=== PATIENT | male | born 1950 | race Caucasian/White ===

== ENCOUNTER 2022-12-20 07:12 | Day surgery (SDC) | payer MEDICARE, SELFPAY ==
[2022-12-20] MEDS: LACTATED RINGERS 1000 ML 1,000 ML 100 ML IV (07:25)
[2022-12-20 07:36] VITALS: BMI 33.8
[2022-12-20 07:41] VITALS: BP 134/89; PULSE 52; RESP 16; TEMP 36.7; O2SAT 94
--- NOTE | 2022-12-20 08:30 | CRLHL7_ITS ---
For Patients: As a result of the Century Cures Act, medical imaging exams and procedure reports are released immediately into your electronic medical record. You may view this report before your referring provider. If you have questions, please contact your health care provider. INDICATION: Intraoperative evaluation. TECHNIQUE: Two portable spot intraoperative images of the left foot. FINDINGS: 14.2 seconds fluoroscopy time utilized intraoperatively. IMPRESSION: 14.2 seconds fluoroscopy time utilized at the time of left foot surgery. Dictated by Raj Neal MD @ 12/20/2022 10:21:53 AM (Electronically Signed)
[2022-12-20] MEDS: BUPIVACAINE 0.5% 30 ML 40 ML INJECTION (09:18)
[2022-12-20 10:29] VITALS: BP 116/79; PULSE 47; RESP 16; TEMP 36.7; O2SAT 95
--- NOTE | 2022-12-20 10:33 | W.ANESCHARGE ---
Anesthesia Charges Start Date/Time Anesthesia Start Date: 12/20/22 Anesthesia Start Time: 08:58 Stop Date/Time Anesthesia Stop Date: 12/20/22 Anesthesia Stop Time: 10:32
[2022-12-20 10:45] VITALS: BP 123/78; PULSE 44; RESP 16; O2SAT 97
--- NOTE | 2022-12-20 10:48 | P.PCN_ITS ---
Procedure Note Date Seen: 12/20/22 Date of procedure: 12/20/22 Will [facility] bill your pro fee for this procedure?: No Pre-op diagnosis: Hallux rigidus left Post-op diagnosis: same Procedure: Cheilectomy 1st MPJ left Procedure Description: Indication for surgery: Patient was seen in clinic for arthritic great toe joint. He has elected for cheilectomy today. I reviewed the procedure, recovery, expectations and potential complications. These include but are not limited to: Poor wound healing, infection, continued pain, potential need for future surgery, deep venous thrombosis, pulmonary embolism and possible . All questions answered and written consent was obtained and site marked. Procedure: Patient was brought in the operating room placed in supine position on operating table. IV sedation was initiated local anesthetic injected into the left foot. She was then prepped and draped in a sterile fashion. Standard time-out protocol followed. Left foot was then exsanguinated and the ankle tourniquet inflated to 250 mm Hg. A dorsal linear incisions made over the 1st metatarsophalangeal joint. The incision was carried down through skin subcutane ous tissues. Linear capsular incision was made and joint capsule reflected away from the 1st MPJ. Two large loose floating bone fragments dorsally are encountered and removed. Third loose fragments attached to the phalangeal base and is removed. Significant bony spurring to the dorsal medial and lateral aspect of the 1st metatarsal head. There is complete loss of cartilage over the 1st metatarsal head. Despite this the MPJ glides nicely without catching. Using a combination of a rongeur and rotary bur the bony spurring from both the phalangeal base and the 1st metatarsal head were removed. C-arm confirmed excellent reduction of the bony growth. Clinical range of motion is without catching and glides nicely without bony impingement dorsally. Wound was thoroughly irrigated with normal sterile saline. Redundant joint capsule excised and joint capsule repaired with 3-0 Vicryl. Subcutaneous tissues reapproximated 4-0 Vicryl and the skin closed with 4-0 Prolene. Sterile dressing was applied she was transferred from OR to PACU vital signs stable and vascular status intact to the left foot. He was discharged per Anesthesia. He is given [place] for pain. A follow-up in 2-3 days. Both written and verbal postop instructions given. Anesthesia: MAC and local Surgeon: Edy Gaston DPM Estimated blood loss (mL): 5 Condition: stable Disposition: same day
[2022-12-20 11:00] VITALS: BP 139/65; PULSE 50; RESP 16; O2SAT 96
== END 2022-12-20 11:08 | disposition home or self-care (01) ==
LOC: OR 07:14
PROVIDERS: PCP Family Medicine; Visit Provider Podiatrist
PROC: (CPT 28289; principal; 2022-12-20 08:30)
DX: M20.22 Hallux rigidus, left foot (principal)
CPT/HCPCS: 28289; 1480; 73620; J0665; J2250; J2704; J3010; J7120

== ENCOUNTER 2024-07-26 02:36 | Emergency (ER) | payer MEDICARE, SELFPAY ==
[2024-07-26] VITALS (14 sets, daily range): BP systolic 111–147; BP diastolic 75–102; PULSE 76–83; RESP 14–44; TEMP 36.2; O2SAT 88–94; BMI 34.7
--- OUTSIDE RECORDS SUMMARY | 2024-07-26 02:39 | XMS_ITS | Clinical Summary ---
Author Organization [facility] Address [address] [place] [id number] Care Team Providers Care Toddler Lead Teacher Name Role Phone Ailyn, Marguerite TANISHA Unavailable [phone] Cecil Ge MD Primary Care Provider Allergies Active Allergy Reactions Criticality Noted Date Comments Atorvastatin Myalgia High 10/26/2019 Pravastatin Myalgia High 10/26/2019 Rosuvastatin Myalgia High 10/26/2019 Medications albuterol sulfate (ALBUTEROL INHL) Inhale 1-2 Puffs by mouth every 4 hours if needed. Active albuterol-ipratro pium (DUONEB) (2.5-0.5 mg) in 3 mL NEBULIZATION solutionIndicatio ns:Community acquired pneumonia, unspecified laterality Inhale 3 mL via a nebulizer every 6 hours if needed for Shortness Of Breath or Wheezing. 540 mL 3 024 Active NebulizerIndicati ons:Community acquired pneumonia, unspecified laterality Nebulizer, disposable neb kit x 4, reuseable neb kit x 1, mask x 1, filters x 1. Frequency of use: daily; Medication: duoneb Length of need: 99 months 1 Each 024 Active nebulizer accessories kitIndications:Co mmunity acquired pneumonia, unspecified laterality For home use. Length of need: 99 1 Kit 024 Active evolocumab (Repatha SureClick) 140 mg/mL subcutaneous pen injectorIndicatio ns:Hyperlipidemia , unspecified hyperlipidemia type Inject 1 mL (140 mg) subcutaneous every 2 weeks. Inject into abdomen, thigh, or upper arm; rotate injection sites. 6 mL 2 025 Active fluticasone (50 mcg per actuation) nasal solution (FLONASE) Inhale 1 [place] into affected nostril(s) once daily if needed for Rhinitis. Active polyethylene glycol (MIRALAX; GLYCOLAX) 17 g per packet packetIndications :S/P lumbar fusion Take 17 g by mouth or nasogastric tube once daily if needed for Constipation. 025 Active sennosides-docusa te (SENOKOT S) (8.6-50 mg) tabletIndications :S/P lumbar fusion Take 1-4 Tablets by mouth 2 times daily if needed for Constipation. 50 Tablet 06/29/19 25 12:30 PM TIMBER CUTTER 025 Active acetaminophen (TYLENOL EXTRA STRGTH) 500 mg tabletIndications :S/P lumbar fusion Take 2 Tablets (1,000 mg) by mouth every 6 hours. Max acetaminophen dose: 4000mg in 24 hrs. 100 Tablet 06/29/19 25 12:30 PM TIMBER CUTTER 025 Active cyclobenzaprine (FLEXERIL) 5 mg tabletIndications :S/P lumbar fusion Take 1 Tablet (5 mg) by mouth every 8 hours if needed for Muscle Spasm. 20 Tablet 06/29/19 25 12:30 PM TIMBER CUTTER 025 Active methylPREDNISolon e (MEDROL DOSEPAK) 4 mg tabletIndications :Post-op pain Take by mouth as instructed per packaging. 21 Tablet 07/04/19 25 10:27 AM TIMBER CUTTER 025 Active gabapentin (NEURONTIN) 300 mg capsuleIndication s:Post-op pain Take 1 Capsule (300 mg) by mouth three times daily. 90 Capsule 07/04/19 25 10:27 AM TIMBER CUTTER 025 Active HYDROmorphone 2 mg tabletIndications :Post-op pain Take 1-2 Tablets (2-4 mg) by mouth every 6 hours if needed for Pain. 30 Tablet 07/04/19 25 10:27 AM TIMBER CUTTER 025 Active fluticasone (50 mcg per actuation) nasal solution (FLONASE)Indicati ons:Seasonal allergies Inhale 1 [place] into both nostrils once daily. 2 Bottle 1 015 2024 Discontinued(R eorder (E-cancel not sent)) naproxen sodium (Aleve) 220 mg cap Take 220 mg by mouth 2 times daily if needed. 2024 Discontinued(* IP Discontinued) oxyCODONE (ROXICODONE) 5 mg immediate release tabletIndications :S/P lumbar fusion Take 1-2 Tablets (5-10 mg) by mouth every 4 hours if needed for Pain (First choice for severe pain.). 30 Tablet 06/29/19 12:30 PM TIMBER CUTTER 025 2024 Discontinued(* IP Discontinued) WalkerIndications :S/P lumbar fusion Walker with front wheels for home use. Anticipated use for 4 weeks 1 Each 025 2024 Discontinued(* Patient states no longer taking) HYDROmorphone 2 mg tabletIndications :Post-op pain Take 1-2 Tablets (2-4 mg) by mouth every 6 hours if needed for Pain. 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 Araujo left knee cortisone injection. Aortic dilatation 06/07/2019 Overview (09/27/2019): May 2019: calcium score 29%, but aorta dilated to 4.6 Recommended Echocardiogram. August 2019, Chest angiogram: 1. Moderate dilation of the aortic root measuring 46 mm in maximal diameter across the noncoronary cusp. 2. Moderate dilation of the mid ascending aorta measuring 48 mm in maximal diameter. 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 Hip osteoarthritis 09/21/2013 Vitamin D deficiency 04/17/2012 Overview (01/14/2015): April 2012: vitamin D level 30 while taking 5,000 units daily, continue. Dec 2014: vitamin D. 25.9. Adenomatous colon polyp 12/24/2011 Overview (02/28/2023): Colonoscopy 03/2022 TA, repeat in 7 years Degenerative arthritis of finger(s) 12/10/2009 Overview (12/10/2009): Nov 2009: left pinky: PIP joint arthritis, possible old fracture. Mixed hyperlipidemia 10/10/2008 Overview (08/22/2018): Dec 2014: fasting Cholesterol high, ASCVD Risk Virtualization Engineer: 10 % 10 Year risk after info entered, statin recommended, Patient was going to think about it. May 2016: started Atorvastatin (Lipitor) 20mg. June 2016: leg soreness, so trying off and may try again. July 2018: ASCVD Risk Virtualization Engineer: 15 % 10 Year risk after info entered, trying 10mg Rosuvastatin (Crestor). Abnormal glucose 10/10/2008 BURSITIS - OLECRANON 09/16/2004 BAKERS CYST (POPLITEAL) 05/25/2004 SLEEP DISORDER 11/22/2002 ALLERGIES 09/12/2001 Resolved Problems Problem Noted Date Diagnosed Date Resolved Date Elevated fasting glucose 11/19/200905/2016 Overview (12/10/2009): October 2009: fasting glucose 108. nees recheck. High recheck; referral to Pre-diabetes class Nov 2009. Family history of colonic polyps 01/20/2009 06/30/2016 Overview (02/16/2017): Colonoscopy 12/2008 polyp repeat in 5 years Colonoscopy 01/2017 polyp repeat in 5 years Encounters Date Type Department Care Team Description 07/25/2024 Nurse Triage [facility] [id number] [place] [id number] Cecil Ge MD Dizzy 07/06/2024 1:20 PM TIMBER CUTTER Office Visit [address] [address] Cecil Ge MD Hospital F/U 07/06/2024 Patient Outreach [facility] Care Management - Advanced Care Team [address] [place] [phone] Sera Townsend, ARABIC TEACHER Complex Care Management (Complex Care Engagement) 07/06/2024 Travel 07/04/2024 Travel 07/04/2024 Patient Outreach [facility] Care Management - Care Management Navigation/[facility] [address] [place] [id number] Marry Akers Care Management Intake (Payer Referral) 07/04/2024 Patient Outreach [address] [address] Demetrice Sorensen, RN Primary RN Care Management (LACE:30); Hospital F/U (Post op pain DOD:07/03/24) 07/02/2024 Patient Outreach [address] [address] Caryl Baldwin, RN Primary RN Care Management; Hospital F/U (DOD 06/30/2024, Spinal stenosis of lumbar region, LACE+30) 07/01/2024 6:48 PM TIMBER CUTTER - 07/03/2024 12:00 PM TIMBER CUTTER Hospital Encounter [address] [address] s, U Hospitalist Kaykay Solis DO Islyamova, Lyudmila, MD Carlson, Bayard Chandler, MD Post-op pain (Primary Dx) Discharge Disposition: Home Self Care 07/01/2024 Travel 06/28/2024 7:29 AM TIMBER CUTTER Anesthesia Event [address] [address] Shelley Brand MD LabergeMarcelo MD 06/28/2024 7:10 AM TIMBER CUTTER - 06/28/2024 11:54 AM TIMBER CUTTER Surgery [address] [address] Sarah Griffin MD Posterior Spine Fusion with Instrumentation L3-L4, TLIF - Transforaminal Lumbar Interbody Fusion L3-L- Left, Laminectomy with facetectomy/foraminoto my L3-L4 06/28/2024 5:11 AM TIMBER CUTTER - 06/30/2024 2:49 PM TIMBER CUTTER Hospital Encounter [address] [address] Sarah Griffin MD S/P lumbar fusion (Primary Dx) Discharge Disposition: Home Self Care 06/27/2024 Travel 06/11/2024 Orders Only [address] [address] Cecil Ge MD 1 scan: (1-Ord) 06/08/2024 06/08/2024 11:55 AM TIMBER CUTTER Ancillary Procedure [address] [address] 06/08/2024 11:30 AM TIMBER CUTTER Office Visit [address] [address] Cecil Ge MD Pre-Op Exam (DOS:06/28/24, Dr. Griffin, [place]) 06/07/2024 Travel 06/06/2024 Travel from Last 3 Months Immunizations Immunization Administration Dates Next Due COVID-19 vaccine (Applied BioCode NTUTOPY 30mcg/0.3mL) PF, MDV 07/26/2020,07/05/2020 Influenza, High-dose Inactivated 05/14/2019 Influenza, High-dose Quadriv alent Inactivated 03/31/2022,03/11/2020 Influenza, IIV3 (Age >=3 years) 02/22/2012,02/05 Influenza, IIV4 01/21/2017,01/06/2016,01/10/2015 Pneumococcal Poly,23-Valent (Pneumovax) 02/07/20 20 Pneumococcal conj 13-Valent (Prevnar 13) 019 Td (Age >=7 Years) 06/10/1999 Tdap 09/10/2021,02/05/2011 Zoster (Shingrix-RZV, recombinant) 11/22/2023, Family History Medical History Relation Name Comments Stroke Father Diabetes Mother Diabetes Paternal Grandfather Cancer Sister Breast cancer. Relation Name Status Comments Father Mother Paternal Grandfather Sister Social History Tobacco Use Types Packs/Day Years Used Date Smoking Tobacco: Never Passive Smoke Exposure: Never Smokeless Tobacco: Never Tobacco Cessation:Counseling Given: No Alcohol Use Standard Drinks/Week Comments Yes 1 (1 standard drink = 0.6 oz pur e alcohol) 1-2 per week. PHQ-2 Answer Date Recorded PHQ-2 TOTAL SCORE 0 07/06/2024 Social Connections Answer Date Recorded Do you often feel lonely or isolated from those around you? 0 07/01/2024 Financial Resource Strain Answer Date R ecorded Difficulty of Paying Living Expenses 3 02/28/2024 Difficulty of Paying Living Expenses Not on file 02/28/2024 Food Insecurity Answer Date Recorded Do you worry your food will run out before you are able to buy more? 1 07/06/2024 Transportation Needs Answer Date Record ed Does lack of transportation keep you from medica l appointments? 1 07/06/2024 Does lack of transportation keep you from work, meetings or getting things that you need? 1 07/06/2024 Housing Stability Answer Date Recorded What is your housing situation today? 1 07/06/2024 Interpersonal Safety Answer Date Record ed Are you being hit, kicked, p ushed or yelled at (see row info)? No 06/29/2024 Interpersonal Safety Abuse 12 - 18 Not on file 06/29/2024 Interpersonal Safety Ambulatory Vulnerability No t on file 06/29/2024 Utilities Answer Date Recorded Do you have trouble paying f or utilities (for example, heat, electricity, water, phone)? 1 07/06/2024 Sex and Gender Information Value Date Recorded Sex Assigned at Male 02/08/2023 10:51 AM CDT Legal Sex Male 5:24 AM TIMBER CUTTER Gender Identity Male 02/08/2023 10:51 AM CDT Sexual Orientation Straight 02/08/2023 10 :51 AM CDT Obstetrics History Last Filed Vital Signs Vital Sign Reading Time Taken Comments Blood Pressure 120/80 07/06/2024 1:17 PM TIMBER CUTTER Pulse 61 07/06/2024 1:17 PM TIMBER CUTTER Temperature 36.4 C (97.6 F) 07/03/2024 8:33 AM TIMBER CUTTER Respiratory Rate 18 07/03/2024 8:33 AM TIMBER CUTTER Oxygen Saturation 95% 07/06/2024 1:17 PM TIMBER CUTTER Inhaled Oxygen Concentration - - Weight 125.2 kg (276 lb) 07/06/2024 1:17 PM TIMBER CUTTER Height 188 cm (6' 2) 07/06/2024 1:17 PM TIMBER CUTTER Body Mass Index 35.44 07/06/2024 1:17 PM TIMBER CUTTER Plan of Treatment Upcoming Encounters Date Type Department Care Team (Late st Contact Info) Description 08/14/2024 8:30 AM CDT Orders Only [facility] [address] [place] [address] Health Maintenance Due Date Last Done Comments RSV vaccine for adults or (1 - Risk 60-74 years 1-dose series) 2012 COVID-19 vaccine series ( season) 2024 06/03/2022, 03/23/2021, 07/26/2020, Additional history exists Influenza Vaccine (#1) 2024 , 01/21/2017, 01/06/2016, Additional history exists Medicare Wellness for age 65+ 07/19/2024, 07/04/2020, 08/21/2018 BMI (ht and wt on same day) for age 18+ 07/06/2025 07/06/2024, 06/08/2024, 02/16/2024, Additional history exists Depression screening for age 12+ 07/06/2025 07/06/2024, 07/06/2024, 07/19/2023, Additional history exists Colonoscopy through age 75 03/09/202903/09, 03/09/2022, 03/09/2022, Additional history exists Lipids for age 45-75 06/08/2029 06/08/2024, 07/19/2023, 08/06/2022, Additional history exists Tetanus booster 09/11/2031 09/10/2021, 1010/2010, 06/10/1999 Hepatitis C screening for ag e 18-79 Completed 04/09/2016 Pneumococcal series for age 50+ Completed , 08/21/2018 Tdap Completed 09/10/2021, 02/05/2011 Zoster (shingles) series for age 50+ Completed 11/22/2023, 07/07/2023 Medical Devices Implanted Type Area Toddler Lead Teacher Device Identifier Shelf Expiration Date Model / Serial / Lot Bone 1-4mm 30cc Medtronic Chips Canclls Freeze Dried - [id number] Implanted:Qty : 1 on 06/28/2024 by Sarah Griffin MD at [facility] Left: Spine Medtronic Spine/Ortho [id number] 01/25/2028 [id number] / [id number] / Set Bone Graft Accelerate [place] Dbf 6c - [id number] Implanted:Qty : 1 on 06/28/2024 by Sarah Griffin MD at [facility] Left: Spine Medtronic Spine/Ortho [id number] 10/19/2025 [id number] / [id number] / Putty Easypack 5cc Magnetos - [id number] Implanted:Qty : 1 on 06/28/2024 by Sarah Griffin MD at [facility] l: Spine [employer] 03/02/2029 [id number] / / [id number] Spacer Catalyft 7mm Pl Lng - [id number] Implanted:Qty : 1 on 06/28/2024 by Sarah Griffin MD at [facility] Left: Spine Medtronic Spine/Ortho 04/09/2032 [id number] / / [id number] Putty Easypack 1.5cc Magnetos - [id number] Implanted:Qty : 1 on 06/28/2024 by Sarah Griffin MD at [facility] Left: Spine [employer] 11/30/2028 [id number] / / [id number] Set Screw Lmbr Ant 5.5mm Solera Break Off - [id number] Implanted:Qty : 4 on 06/28/2024 by Sarah Griffin MD at [facility] l: Spine Medtronic Spine/Ortho [id number] / / Screw Lmbr Post 7.5x55mm Solera 5.5/6 Va Cocr - [id number] Implanted:Qty : 2 on 06/28/2024 by Sarah Griffin MD at [facility] l: Spine Medtronic Spine/Ortho [id number] / / Screw Lmbr Post 6.5x55mm Solera 5.5/6 Va Cocr - [id number] Implanted:Qty : 2 on 06/28/2024 by Sarah Griffin MD at [facility] l: Spine Medtronic Spine/Ortho [id number] / / Jerome Lmbr 45x5.5mm Solera 5.5/6 Cvd Titnm - [id number] Implanted:Qty : 1 on 06/28/2024 by Sarah Griffin MD at [facility] l: Spine Medtronic Spine/Ortho [id number] / / Procedures Procedure Name Priority Date/Time Associated Diagnosis Comments CT SPINE LUMBAR WO LUCIANO 07/02/2024 12:18 PM TIMBER CUTTER HEMOGLOBIN Early AM 06/30/2024 6:19 AM TIMBER CUTTER XR SPINE LUMBAR 2 VIEWS Routine 06/29/2024 10:09 AM TIMBER CUTTER HEMOGLOBIN Early AM 06/29/2024 6:33 AM TIMBER CUTTER XR C-ARM GREATER 1 HR Routine 06/28/2024 10:43 AM TIMBER CUTTER XR O-ARM FLUORO 31-120 MINUTES Routine 06/28/2024 9:03 AM TIMBER CUTTER ENDOTRACHEAL TUBE Routine 06/28/2024 8:25 AM TIMBER CUTTER ENDOTRACHEAL TUBE Routine 06/28/2024 8:25 AM TIMBER CUTTER ENDOTRACHEAL TUBE Routine 06/28/2024 8:25 AM TIMBER CUTTER XR SPINE 1 VIEW PORTABLE Routine 06/28/2024 8:17 AM TIMBER CUTTER XR SPINE 1 VIEW PORTABLE Routine 06/28/2024 8:17 AM TIMBER CUTTER POSTERIOR LUMBAR SPINE FUSION LEVEL 1 WITH STEALTH Tier 4 06/28/2024 7:09 AM TIMBER CUTTER 1) Spondylolisthesis, Lumbar M43.16 2) Stenosis, Lumbar - w/Neurogenic Claudication M48.062 Case Notes 0730 180 MIN O Arm AND Stealth - TRANSONE (ABBY) CONFIRMED FOR 0730 TT 04/12Cell Saver CONFIRMED WITH SUE @30 # [id number] TT 04/12Axis Table Insert Russell CatheterSolera 5.5/6.0 - Confirmed with Perez Hdez ([phone]) BD 06/26Solera [id number] Accellerate Special Needs 6' 1.5, 125.7 kg, BMI 36.06 TYPE & SCREEN Preop 06/28/2024 6:25 AM TIMBER CUTTER GLUCOSE, FASTING Preop 06/28/2024 6:25 AM TIMBER CUTTER HEMOGLOBIN Preop 06/28/2024 6:25 AM TIMBER CUTTER SCAN-CARDIAC STRIP 06/28/2024 12:00 AM TIMBER CUTTER SCAN-OPERATIVE/PRO CEDURE REPORT 06/28/2024 12:00 AM TIMBER CUTTER CBC WITH AUTO DIFFERENTIAL Routine 06/08/2024 12:20 PM TIMBER CUTTER Pre-op exam BASIC METABOLIC PANEL Routine 06/08/2024 12:20 PM TIMBER CUTTER Pre-op exam PSA TOTAL Routine 06/08/2024 12:20 PM TIMBER CUTTER Special screening for malignant neoplasm of prostate VITAMIN D 25 (DEFICIENCY) Routine 06/08/2024 12:20 PM TIMBER CUTTER Vitamin D deficiency LIPID PANEL Routine 06/08/2024 12:20 PM TIMBER CUTTER Mixed hyperlipidemia PROTIME-INR Routine 06/08/2024 12:18 PM TIMBER CUTTER Pre-op exam XR CHEST 2 VIEWS PA AND LATERAL Routine 06/08/2024 12:00 PM TIMBER CUTTER Pre-op exam EKG 12 LEAD Routine 06/08/2024 12:00 AM TIMBER CUTTER Pre-op exam COLONOSCOPY SCREENING Routine 03/09/2022 10:22 AM TIMBER CUTTER History of colon polyps ANTI HCV Routine 04/09/2016 9:15 AM TIMBER CUTTER Need for hepatitis C screening test from Last 3 Months or Most Recently Relevant to Health Maintenance Results * CT SPINE LUMBAR WO (07/02/2024 12:18 PM TIMBER CUTTER) Anatomical Region Laterality Modality LUMBAR SPINE, Spine, Spine Compu nava Tomography 07/02/2024 12:1 8 PM TIMBER CUTTER Impressions 07/02/2024 12:40 PM TIMBER CUTTER 1. No instrumentation loosening or failure. 2. No high grade spinal canal or neural foraminal stenosis. Narrative 07/02/2024 12:40 PM TIMBER CUTTER For Patients: As a result of the Cures Act, medical imaging exams and procedure reports are released immediately into your electronic medical record. You may view this report before your referring provider. If you have questions, please contact your health care provider. EXAM: CT SPINE LUMBAR WO LOCATION: [facility] DATE: 07/02/2024 INDICATION: Lumbar radiculopathy, prior surgery, new symptoms COMPARISON: 07/01/24, 06/29/24 TECHNIQUE: Routine CT Lumbar Spine without IV contrast. Multiplanar reformats. Dose reduction techniques were used. FINDINGS: VERTEBRA: Normal vertebral body heights. Grade 1 retrolisthesis at L2-3 and L5- S1. Straightening of normal lumbar lordosis. Instrumented anterior and posterior spinal fusion and left-sided facetectomy and laminectomy at L3-4. No instrumentation loosening or failure. No robust bony fusion. CANAL/FORAMINA: Mild to moderate spinal canal stenosis at L3-4 and mild spinal canal stenosis at L2-3. No high-grade neural foraminal stenosis. Multilevel Schmorl's node-like endplate indentations. EXTRASPINAL: No extraspinal abnormality. Procedure Note Ned Baird MD - 07/02/2024 For Patients: As a result of the Cures Act, medical imagingexams and procedure reports are released immediately into your electronicmedical record. You may view this report before your referring provider.If you have questions, please contact your health care provider. EXAM: CT SPINE LUMBAR WO LOCATION: [facility] MEDICAL [facility]AG[facility] DATE: 07/02/2024 INDICATION: Lumbar radiculopathy, prior surgery, new symptoms COMPARISON: 07/01/24, 06/29/24 TECHNIQUE: Routine CT Lumbar Spine without IV contrast. Multiplanarreformats. Dose reduction techniques were used. FINDINGS: VERTEBRA: Normal vertebral body heights. Grade 1 retrolisthesis at L2-3and L5- S1. Straightening of normal lumbar lordosis. Instrumented anteriorand posterior spinal fusion and left-sided facetectomy and laminectomy atL3-4. No instrumentation loosening or failure. No robust bony fusion. CANAL/FORAMINA: Mild to moderate spinal canal stenosis at L3-4 and mildspinal canal stenosis at L2-3. No high-grade neural foraminal stenosis.Multilevel Schmorl's node-like endplate indentations. EXTRASPINAL: No extraspinal abnormality. IMPRESSION: 1. No instrumentation loosening or failure. 2. No high grade spinal canal or neural foraminal stenosis. Iman PATE CT Fin al Result * Hemoglobin - In AM (06/30/2024 6:19 AM TIMBER CUTTER) Only the most recent of3 resultswithin the time period is included. HEMOGLOBIN 14.6 13.5 - 17.5 g/dL 06/30/2024 6:51 AM [facility] MCV 92 80 - 100 fL 06/30/2024 6:51 AM [facility] Blood BLOOD SPECIMEN / Unknown Venipuncture / Unknown 06/30/2024 6:19 AM TIMBER CUTTER 06/30/2024 6:46 AM [facility] [place] - 06/30/2024 6:51 AM TIMBER CUTTER Call surgeon if Hemoglobin is less than 9. us [facility] Leeanna l Result [facility] SENDOUT [place] ZIP [id number] [address] [place] [address] * XR SPINE LUMBAR 2 VIEWS (06/29/2024 10:09 AM TIMBER CUTTER) Anatomical Region Laterality Modality LUMBAR SPINE Computed Radiogr aphy 06/29/2024 10:0 9 AM TIMBER CUTTER Impressions 06/29/2024 11:05 AM TIMBER CUTTER New postoperative changes with posterior jerome and screw fixation hardware and intervertebral disc spacer at L3-L4. Metal hardware appears intact on these images. Persistent mild grade 1 retrolisthesis of L2 on L3. No new loss of vertebral body height. Marked degenerative endplate changes and loss of disc height at L1-2, L2-3, and L5-S1. Narrative 06/29/2024 11:05 AM TIMBER CUTTER For Patients: As a result of the Cures Act, medical imaging exams and procedure reports are released immediately into your electronic medical record. You may view this report before your referring provider. If you have questions, please contact your health care provider. EXAM: XR SPINE LUMBAR 2 VIEWS LOCATION: [facility] DATE: 06/29/2024 INDICATION: Postop evaluation. COMPARISON: Lumbar spine CT 04/12/2024. Procedure Note Kiran Zelaya MD - 06/29/2024 For Patients: As a result of the Cures Act, medical imagingexams and procedure reports are released immediately into your electronicmedical record. You may view this report before your referring provider.If you have questions, please contact your health care provider. EXAM: XR SPINE LUMBAR 2 VIEWS LOCATION: [facility] DATE: 06/29/2024 INDICATION: Postop evaluation. COMPARISON: Lumbar spine CT 04/12/2024. IMPRESSION: New postoperative changes with posterior jerome and screw fixation hardwareand intervertebral disc spacer at L3-L4. Metal hardware appears intact onthese images. Persistent mild grade 1 retrolisthesis of L2 on L3. No newloss of vertebral body height. Marked degenerative endplate changes andloss of disc height at L1-2, L2- 3, and L5-S1. [facility] Leeanna l Result * XR C-ARM GREATER 1 HR (06/28/2024 10:43 AM TIMBER CUTTER) Anatomical Region Laterality Modality Computed Radiogr aphy 06/28/2024 10:4 3 AM TIMBER CUTTER Narrative 06/28/2024 11:22 AM TIMBER CUTTER For Patients: As a result of the Cures Act, medical imaging exams and procedure reports are released immediately into your electronic medical record. You may view this report before your referring provider. If you have questions, please contact your health care provider. EXAM: XR C-ARM GREATER 1 HR LOCATION: [facility] DATE: 06/28/2024 INDICATION: free text)->Intraoperative COMPARISON: None. TECHNIQUE: Intraoperative fluoroscopy performed during the patient's procedure. RADIATION DOSE: GILBERTO 7.83 mGy FINDINGS: 3 intraoperative fluoroscopic views of the lumbar spine for intraprocedural localization. Procedure Note Kenny Alva MD - 06/28/2024 For Patients: As a result of the Cures Act, medical imagingexams and procedure reports are released immediately into your electronicmedical record. You may view this report before your referring provider.If you have questions, please contact your health care provider. EXAM: XR C-ARM GREATER 1 HR LOCATION: [facility] DATE: 06/28/2024 INDICATION: free text)->Intraoperative COMPARISON: None. TECHNIQUE: Intraoperative fluoroscopy performed during the patient'sprocedure. RADIATION DOSE: GILBERTO 7.83 mGy FINDINGS: 3 intraoperative fluoroscopic views of the lumbar spine forintraprocedural localization. Sarah Griffin MD FLUOROSCOPY Final Result * XR O-ARM FLUORO 31-120 MINUTES (06/28/2024 9:03 AM TIMBER CUTTER) Anatomical Region Laterality Modality Computed Radiogr aphy 06/28/2024 9:03 AM TIMBER CUTTER Impressions 06/28/2024 10:22 AM TIMBER CUTTER Single crosstable view prone portal lumbar spine demonstrates 5 lumbar segments presumed with degenerative changes. Demarcation dorsally of the spinous process at L3. Additional frontal and lateral projection imaging of the lower lumbar spine with 192 image data set axially acquired of the lumbar spine also submitted. Correlate with real-time imaging/procedural changes. Narrative 06/28/2024 10:22 AM TIMBER CUTTER For Patients: As a result of the Cures Act, medical imaging exams and procedure reports are released immediately into your electronic medical record. You may view this report before your referring provider. If you have questions, please contact your health care provider. EXAM: XR SPINE 1 VIEW PORTABLE, XR O-ARM FLUORO 31-120 MINUTES LOCATION: [facility] MEDICAL IMAGING DATE: 06/28/2024 INDICATION: Localization back pain. COMPARISON: 06/28/2024 at 0751 hours. Procedure Note Jordan Calderón MD - 06/28/2024 For Patients: As a result of the Cures Act, medical imagingexams and procedure reports are released immediately into your electronicmedical record. You may view this report before your referring provider.If you have questions, please contact your health care provider. EXAM: XR SPINE 1 VIEW PORTABLE, XR O-ARM FLUORO 31-120 MINUTES LOCATION: [facility] MEDICAL IMAGING DATE: 06/28/2024 INDICATION: Localization back pain. COMPARISON: 06/28/2024 at 0751 hours. IMPRESSION: Single crosstable view prone portal lumbar spine demonstrates 5 lumbarsegments presumed with degenerative changes. Demarcation dorsally of thespinous process at L3. Additional frontal and lateral projection imaging of the lower lumbarspine with 192 image data set axially acquired of the lumbar spine alsosubmitted. Correlate with real-time imaging/procedural changes. us Sarah Griffin MD FLUOROSCOPY Final Result * HCHG TUBE PR1, HCHG STYLET PR1, HCHG MOUTHPIECE PR1 (06/28/2024 8:25 AM TIMBER CUTTER) Narrative Joanne Grant CRNA - 06/28/2024 8:25 AM TIMBER CUTTER Joanne Grant CRNA 06/28/2024 8:25 AM Procedure: ETT Patient location during procedure: OR ETT Properties Mask Ventilation: easy and oral airway Final Technique: direct laryngoscopy Type: straight Location: oral Cuffed: yes Tube Size: 8.0 mm Stylet: yes Laryngoscope Blade: Mancia Blade Size: 2 Cormack-Lehane Grade View: 2 Insertion Attempts: 1 Placement Verification: auscultation, end tidal CO2 and symmetrical chest wall movement Assessment: pharynx clear, atraumatic and dentition unchanged Secured at: 21 Measured From: lips Tooth guard used and removed: yes Bite Block: molar Difficulty: 0 (not difficult) us Shelley Brand MD ANESTHESIA PX NOTE ORDERA BLES Final Result * XR SPINE 1 VIEW PORTABLE (06/28/2024 8:17 AM TIMBER CUTTER) Only the most recent of2 resultswithin the time period is included. Anatomical Region Laterality Modality Spine, CERVICAL SPINE, THORACIC SPINE, LUMBAR SP INE Computed Radiography 06/28/2024 8:17 AM TIMBER CUTTER Impressions 06/28/2024 10:22 AM TIMBER CUTTER Single crosstable view prone portal lumbar spine demonstrates 5 lumbar segments presumed with degenerative changes. Demarcation dorsally of the spinous process at L3. Additional frontal and lateral projection imaging of the lower lumbar spine with 192 image data set axially acquired of the lumbar spine also submitted. Correlate with real-time imaging/procedural changes. Narrative 06/28/2024 10:22 AM TIMBER CUTTER For Patients: As a result of the Cures Act, medical imaging exams and procedure reports are released immediately into your electronic medical record. You may view this report before your referring provider. If you have questions, please contact your health care provider. EXAM: XR SPINE 1 VIEW PORTABLE, XR O-ARM FLUORO 31-120 MINUTES LOCATION: [facility] MEDICAL IMAGING DATE: 06/28/2024 INDICATION: Localization back pain. COMPARISON: 06/28/2024 at 0751 hours. Procedure Note Jordan Calderón MD - 06/28/2024 For Patients: As a result of the Cures Act, medical imagingexams and procedure reports are released immediately into your electronicmedical record. You may view this report before your referring provider.If you have questions, please contact your health care provider. EXAM: XR SPINE 1 VIEW PORTABLE, XR O-ARM FLUORO 31-120 MINUTES LOCATION: [facility] MEDICAL IMAGING DATE: 06/28/2024 INDICATION: Localization back pain. COMPARISON: 06/28/2024 at 0751 hours. IMPRESSION: Single crosstable view prone portal lumbar spine demonstrates 5 lumbarsegments presumed with degenerative changes. Demarcation dorsally of thespinous process at L3. Additional frontal and lateral projection imaging of the lower lumbarspine with 192 image data set axially acquired of the lumbar spine alsosubmitted. Correlate with real-time imaging/procedural changes. Sarah Griffin MD GENERAL IMAGING Final Result * Type and Screen (06/28/2024 6:25 AM TIMBER CUTTER) ABORH O Rh Positive 06/28/2024 7:33 AM [facility] BLOOD BANK ANTIBODY SCREEN Negative Negative 06/28/2024 7:33 AM [facility] BLOOD BANK SPECIMEN EXPIRATION DATE/TIME 07/01/24 23:59 06/28/2024 7:33 AM TIMBER CUTTER [facility] BLOOD BANK Blood BLOOD SPECIMEN / Unknown Non-Lab Venipuncture / Unknown 06/28/2024 6:25 AM TIMBER CUTTER 06/28/2024 6:35 AM TIMBER CUTTER Sarah Griffin MD BLOOD BANK Final Result [facility] BLOOD BANK [address] [place] [address] * (ABNORMAL) GLUCOSE, FASTING (06/28/2024 6:25 AM TIMBER CUTTER) GLUCOSE 109(H) 70 - 99 mg/dL 06/28/2024 7:14 AM TIMBER CUTTER [facility] Blood BLOOD SPECIMEN / Unknown Non-Lab Venipuncture / Unknown 06/28/2024 6:25 AM TIMBER CUTTER 06/28/2024 6:35 AM TIMBER CUTTER Sarah Griffin MD CHEMISTRY Final Result [facility] SENDOUT INTERNAL ZIP [address] [place] [id number] * SCAN-CARDIAC STRIP (06/28/2024 12:00 AM TIMBER CUTTER) Narrative 06/28/2024 12:00 AM TIMBER CUTTER Ordered by an unspecified provider. Other Clinical Staff OTHER Final Resul t * SCAN-OPERATIVE/PROCEDURE REPORT (06/28/2024 12:00 AM TIMBER CUTTER) Narrative 06/28/2024 12:00 AM TIMBER CUTTER Ordered by an unspecified provider. us Other Clinical Staff OTHER Final Resul t * (ABNORMAL) VITAMIN D 25 (DEFICIENCY) (06/08/2024 12:20 PM TIMBER CUTTER) Pathologist [facility] VITAMIN D,25-OH,TOTAL,IA 29(L) 30 - 100 ng/mL [facility] Comment: Vitamin D Status 25-OH Vitamin D: Deficiency: <20 ng/mL Insufficiency: 20 - 29 ng/mL Optimal: > or = 30 ng/mL For 25-OH Vitamin D testing on patients on D2-supplementation and patients for whom quantitation of D2 and D3 fractions is required, the QuestAssureD(TM) 25-OH VIT D, (D2,D3), LC/MS/MS is recommended: order code 08385 (patients >2yrs). See Note 1 Note 1 For additional information, please refer to http://education.[employer]/faq/DHC238 (This link is being provided for informational/ educational purposes only.) Blood BLOOD SPECIMEN / Unknown 06/08/2024 12:20 PM TIMBER CUTTER 06/08/2024 12:22 PM TIMBER CUTTER Narrative [facility] - 06/09/2024 5:08 AM TIMBER CUTTER FASTING:NO FASTING: NO Cecil Ge MD SEND OUTS Final Result [employer] [facility] [address] [place] [address], [facility] [address] [place] [address] * CBC AND DIFFERENTIAL (06/08/2024 12:20 PM TIMBER CUTTER) [facility] WHITE BLOOD CELL COUNT 4.7 3.8 - 10.8 Thousand/u L [facility] RED BLOOD CELL COUNT 5.43 4.20 - 5.80 Million/uL [facility] HEMOGLOBIN 16.9 13.2 - 17.1 g/dL [facility] HEMATOCRIT 49.9 38.5 - 50.0 % [facility] MCV 91.9 80.0 - 100.0 fL [facility] MCH 31.1 27.0 - 33.0 pg [facility] MCHC 33.9 32.0 - 36.0 g/dL [facility] Comment: For adults, a slight decrease in the calculated MCHC value (in the range of 30 to 32 g/dL) is most likely not clinically significant; however, it should be interpreted with caution in correlation with other red cell parameters and the patient's clinical condition. RDW 13.0 11.0 - 15.0 % [facility] PLATELET COUNT 232 140 - 400 Thousand/u L [facility] MPV 10.9 7.5 - 12.5 fL [facility] ABSOLUTE NEUTROPHILS 2,891 1,500 - 7,800 cells/uL [facility] ABSOLUTE LYMPHOCYTES 1,123 850 - 3,900 cells/uL [facility] ABSOLUTE MONOCYTES 588 200 - 950 cells/uL [facility] ABSOLUTE EOSINOPHILS 80 15 - 500 cells/uL [facility] ABSOLUTE BASOPHILS 19 0 - 200 cells/uL [facility] NEUTROPHILS 61.5 % [facility] LYMPHOCYTES 23.9 % [facility] MONOCYTES 12.5 % [facility] EOSINOPHILS 1.7 % [facility] BASOPHILS 0.4 % [facility] Blood BLOOD SPECIMEN / Unknown 06/08/2024 12:20 PM TIMBER CUTTER 06/08/2024 12:22 PM TIMBER CUTTER Narrative [facility] - 06/09/2024 2:26 AM TIMBER CUTTER FASTING:NO FASTING: NO us Cecil Ge MD HEMATOLOGY Final Result [employer] [facility] [address] [place] [address], [facility] [address] [place] [address] * PSA TOTAL (06/08/2024 12:20 PM TIMBER CUTTER) PSA, TOTAL 2.07 < OR = 4.00 ng/mL [facility] Comment: The total PSA value from this assay system is standardized against the WHO standard. The test result will be approximately 20% lower when compared to the equimolar-standardized total PSA ([place]). Comparison of serial PSA results should be interpreted with this fact in mind. This test was performed using the Siemens chemiluminescent method. Values obtained from different assay methods cannot be used interchangeably. PSA levels, regardless of value, should not be interpreted as absolute evidence of the presence or absence of disease. Blood BLOOD SPECIMEN / Unknown 06/08/2024 12:20 PM TIMBER CUTTER 06/08/2024 12:22 PM TIMBER CUTTER Narrative [facility] - 06/09/2024 5:08 AM TIMBER CUTTER FASTING:NO FASTING: NO Cecil Ge MD CHEMISTRY Final Result Performing Organization Address [facility] Co de Phone Number [employer] [facility] [address] [place] [address], [facility] [address] [place] [address] * (ABNORMAL) LIPID PANEL (06/08/2024 12:20 PM TIMBER CUTTER) CHOLESTEROL, TOTAL 223(H) <200 mg/dL [facility] HDL CHOLESTEROL 60 > OR = 40 mg/dL [facility] TRIGLYCERIDES 96 <150 mg/dL [facility] LDL-CHOLESTEROL 143(H) mg/dL (calc) [facility] Comment: Reference range: <100 Desirable range <100 mg/dL for primary prevention; <70 mg/dL for patients with CHD or diabetic patients with > or = 2 CHD risk factors. LDL-C is now calculated using the Marcus calculation, which is a validated novel method providing better accuracy than the Friedewald equation in the estimation of LDL-C. Rafael PHILLIPS et al. ALMA. 2013;310(19): 8007-2684 (http://education.Zeta Interactive/faq/KTU903) CHOL/HDLC RATIO 3.7 <5.0 (calc) [facility] NON HDL CHOLESTEROL 163(H) <130 mg/dL (calc) [facility] Comment: For patients with diabetes plus 1 major ASCVD risk factor, treating to a non-HDL-C goal of <100 mg/dL (LDL-C of <70 mg/dL) is considered a therapeutic option. Blood BLOOD SPECIMEN / Unknown 06/08/2024 12:20 PM TIMBER CUTTER 06/08/2024 12:22 PM TIMBER CUTTER Narrative [employer] - 06/09/2024 4:24 AM TIMBER CUTTER FASTING:NO FASTING: NO us Cecil Ge MD CHEMISTRY Final Result [employer] [facility] [address] [place] [address], [facility] [address] [place] [address] * (ABNORMAL) BASIC METABOLIC PANEL (06/08/2024 12:20 PM TIMBER CUTTER) Pathologist [facility] GLUCOSE 87 65 - 139 mg/dL [facility] Comment: Non-fasting reference interval UREA NITROGEN (BUN) 26(H) 7 - 25 mg/dL [facility] CREATININE 0.97 0.70 - 1.28 mg/dL [facility] EGFR 83 > OR = 60 mL/min/1.7 3m2 [facility] BUN/CREATININE RATIO 27(H) 6 - 22 (calc) [facility] SODIUM 138 135 - 146 mmol/L [facility] POTASSIUM 4.2 3.5 - 5.3 mmol/L [facility] CHLORIDE 103 98 - 110 mmol/L [facility] CARBON DIOXIDE 26 20 - 32 mmol/L [facility] ELECTROLYTE BALANCE 9 7 - 17 mmol/L (calc) [facility] CALCIUM 9.3 8.6 - 10.3 mg/dL [facility] Blood BLOOD SPECIMEN / Unknown 06/08/2024 12:20 PM TIMBER CUTTER 06/08/2024 12:22 PM TIMBER CUTTER Narrative [facility] - 06/09/2024 4:24 AM TIMBER CUTTER FASTING:NO FASTING: NO Cecil Ge MD CHEMISTRY Final Result [employer] [facility] [address] [place] [address], [facility] [address] [place] [address] * PROTIME-INR (06/08/2024 12:18 PM TIMBER CUTTER) INR 1.0 <1.3 06/08/2024 10:13 PM TIMBER CUTTER [facility] PROTIME 11.3 10.6 - 12.4 sec 06/08/2024 10:13 PM TIMBER CUTTER [facility] Blood BLOOD SPECIMEN / Unknown [facility] / Unknown 06/08/2024 12:18 PM TIMBER CUTTER 06/08/2024 12:18 PM TIMBER CUTTER Narrative [facility] - 06/08/2024 10:13 PM TIMBER CUTTER Therapeutic Range 2.0-3.0 for most anticoagulated patients 2.5-3.5 or 4.0 for high risk patients The INR is only used for patients on stable oral anticoagulant therapy. It makes no significant contribution to the diagnosis or treatment of patients whose Protime is prolonged for other reasons. INR results are increased when heparin levels exceed 1.0 U/mL, which corresponds to an aPTT >125 seconds if the patient is on UFH. Cecil Ge MD HEMATOLOGY Final Result [facility] [address] [place] [address], [place] * XR CHEST 2 VIEWS PA AND LATERAL (06/08/2024 12:00 PM TIMBER CUTTER) Anatomical Region Laterality Modality CHEST, THORAX, Lung, HEART Compu nava Radiography 06/08/2024 6:08 PM TIMBER CUTTER Impressions 06/08/2024 6:08 PM TIMBER CUTTER 1. No acute cardiopulmonary disease is seen. Dictated by: Clif Waters MD @ 06/08/2024 18:08:10 (Electronically Signed) Narrative 06/08/2024 6:08 PM TIMBER CUTTER For Patients: As a result of the Cures Act, medical imaging exams and procedure reports are released immediately into your electronic medical record. You may view this report before your referring provider. If you have questions, please contact your health care provider. INDICATION: Preoperative chest exam, preoperative exam TECHNIQUE: Chest radiograph 2 views COMPARISON: 01/24/2019 FINDINGS: The sensitivity and specificity of the exam are moderately limited by the patient`s body habitus. Mediastinum: The mediastinum is normal in appearance. The heart silhouette is normal in size and morphology. Lung: Both lungs are unremarkable in appearance. No sign of pleural effusion seen. No pneumothorax is identified. Bone and Soft tissue: Unremarkable for age. Procedure Note Clif Waters MD - 06/08/2024 For Patients: As a result of the Cures Act, medical imagingexams and procedure reports are released immediately into your electronicmedical record. You may view this report before your referring provider.If you have questions, please contact your health care provider. INDICATION: Preoperative chest exam, preoperative exam TECHNIQUE: Chest radiograph 2 views COMPARISON: 01/24/2019 FINDINGS: The sensitivity and specificity of the exam are moderatelylimited by the patient`s body habitus. Mediastinum: The mediastinum is normal in appearance. The heart silhouetteis normal in size and morphology. Lung: Both lungs are unremarkable in appearance. No sign of pleuraleffusion seen. No pneumothorax is identified. Bone and Soft tissue: Unremarkable for age. IMPRESSION: 1. No acute cardiopulmonary disease is seen. Dictated by: Clif Waters MD @ 06/08/2024 18:08:10 (Electronically Signed) us Cecil Ge MD GENERAL IMAGING Final Result * EKG 12 LEAD (06/08/2024 12:00 AM TIMBER CUTTER) us Cecil Ge MD EKG ORD Final Result * COLONOSCOPY (03/09/2022 10:58 AM TIMBER CUTTER) 03/09/2022 10:5 8 AM TIMBER CUTTER Narrative Transcriptions Rafael Delgado MD - 03/09/2022 11:41 AM CST Patient Name: Raj Hager Procedure Date: 03/09/2022 Gender: Male Date of : 1950 Admit Type: Outpatient Procedure: Colonoscopy Proceduralist: Rafael Delgado MD , Hansa Gamez RN (Nurse), Collette Bell RN (Nurse) Referring MD: Cecil Ge Indications/Pre-Op Diagnosis: High risk colon cancer surveillance:Personal history of adenoma less than 10 mm in size, Last colonoscopy: January 2017 Medications: Fentanyl 100 micrograms IV, Midazolam 2 mgIV Procedure Description: The patient had risks, benefits and alternatives explained to andgave informed consent. The patient had a stable cardiopulmonary status and judged an adequate candidate for conscious sedation. The endoscope -[id number] was passed through the anus andadvanced to the cecum, identified by appendiceal orifice and ileocecal valve.The colonoscopy was performed without difficulty. The patient toleratedthe procedure well. The quality of the bowel preparation was good. Anatomical landmarks were photographed. Complications: No immediate complications. Estimated Blood Loss & Specimen: Estimated blood loss: none. Specimen collected - Yes and sent to Laboratory Findings: The perianal and digital rectal examinations were normal. A 2 mm polyp was found in the cecum. The polyp was sessile. The polyp was removed with a cold biopsy forceps. Resection and retrieval were complete. A few small-mouthed diverticula were found in the sigmoid colon. The exam was otherwise without abnormality on direct and retroflexion views. Impressions/Post-Op Diagnosis: - One 2 mm polyp in the cecum, removed with a cold biopsy forceps. Resected and retrieved. - Diverticulosis in the sigmoid colon. - The examination was otherwise normal on direct and retroflexionviews. Recommendation: - Patient has a contact number available for emergencies. The signsand symptoms of potential delayed complications were discussed with the patient. Return to normal activities tomorrow. Written discharge instructions were provided to the patient. - Resume previous diet. - Continue present medications. - Await pathology results. - Repeat colonoscopy is recommended. The colonoscopy date will be determined after pathology results from today's exam become available for review. Moderate Sedation: A time out was performed before the procedure. Moderate (conscious) sedation was administered by the endoscopy nurse and supervised bythe endoscopist. The following parameters were monitored: oxygensaturation, heart rate, blood pressure, EKG, CO2, respiratory rate, adequacy of pulmonary ventilation and reponse to care. Please refer to the patient's medical record flowsheets and nursing notes for moderate sedation details. Total physician intraservice time was 16 minutes. Rafael Delgado MD 03/09/2022 11:41:32 AM This report has been signed electronically. Note Initiated On: 03/09/2022 10:58 AM Procedure Code(s): --- Professional --- 35167, Colonoscopy, flexible; with biopsy, single or multiple Diagnosis Code(s): --- Professional --- Z86.010, Personal history of colonicpolyps D12.0, Benign neoplasm of cecum K57.30, Diverticulosis of large intestine without perforation or abscess withoutbleeding CPT copyright 2020 [employer]. All rights reserved. The codes documented in this report are preliminary and upon primary clinician reviewmay be revised to meet current compliance requirements. Scope In: 11:13:47 AM Scope Withdrawal Time 0 hours 8 minutes 17 seconds Scope Out: 11:28:52 AM us Rafael Delgado MD PROCEDURE ORD Final Res ult * ANTI HCV [54760.2] (04/09/2016 9:15 AM TIMBER CUTTER) HEPATITIS C ANTIBODY Non-Reacti ve Non-Reacti ve 04/09/2016 4:26 PM TIMBER CUTTER [facility] Blood BLOOD SPECIMEN / Unknown Venipuncture / Unknown 04/09/2016 9:15 AM TIMBER CUTTER 04/09/2016 9:16 AM TIMBER CUTTER Narrative [facility] - 04/09/2016 4:26 PM TIMBER CUTTER Antibodies to HCV not detected; does not exclude the possibility of exposure to HCV. us Campos Araujo MD SEND OUTS Final Res ult [facility] [address] [place] [address], from Last 3 Months or Most Recently Relevant to Health Maintenance Insurance [facility] MEDICARE ADVANTAGE MR MEDICARE PART A HB ONLY Advance Directives * Full Code (Latest Code Status on File) Date Activated Date Inactivated Comments 07/01/2024 7:07 PM 07/03/2024 2:10 PM Question Answer Comments Code Status Discussion: Reviewed Preferences * Full Code Date Activated Date Inactivated Comments 06/28/2024 7:27 AM 06/30/2024 4:54 PM Question Answer Comments Code Status Discussion: Reviewed Preferences Care Teams Toddler Lead Teacher Relationship Specialty [place] [address] [place] [address] PCP - General Family Practice 04/20/22 Marguerite Robertson MBBS [address] [place] [address] Cardiology Cardiovascular Disease 07/04/20
--- OUTSIDE RECORDS SUMMARY | 2024-07-26 02:39 | XMS_ITS | Encounter Summary ---
Author Organization [facility] Address [address] [place] [address] Care Team Providers Care Cash Person Name Role Phone Cecil Mercado MD Primary Care Provider [phone] Reason for Visit * Reason Comments Post-op Problem Encounter Details Date Type Department Care Team (Late st Contact Info) Description 07/01/2024 5:39 AM COST ACCOUNTING ANALYST - 07/01/2024 6:32 PM COST ACCOUNTING ANALYST Emergency [facility] Emergency Dept [address] [place] [address] Suraj Cantrell MD EMERGENCY PHYSICIAN [facility] [address] [place], [place] [id number] Acute post-operative pain Discharge Disposition: Short Term Hospital Social History Tobacco Use Types Packs/Day Years Used Date Smoking Tobacco: Never Passive Smoke Exposure: Never Smokeless Tobacco: Never Alcohol Use Standard Drinks/Week Comments Yes 0 (1 standard drink = 0.6 oz pur e alcohol) Ocasionally Adolescent Education Answer Date Record ed Getting School Help Needed Not on file 03/14 Sex and Gender Information Value Date Recorded Sex Assigned at Not on file Legal Sex Male 3:27 AM COST ACCOUNTING ANALYST Gender Identity Not on file Sexual Orientation Not on file documented as of this encounter Last Filed Vital Signs Vital Sign Reading Time Taken Comments Blood Pressure 150/93 07/01/2024 5:59 PM COST ACCOUNTING ANALYST Pulse 68 07/01/2024 5:59 PM COST ACCOUNTING ANALYST Temperature 36.5 C (97.7 F) 07/01/2024 5:38 AM COST ACCOUNTING ANALYST Respiratory Rate 18 07/01/2024 5:59 PM COST ACCOUNTING ANALYST Oxygen Saturation 94% 07/01/2024 5:59 PM COST ACCOUNTING ANALYST Inhaled Oxygen Concentration - - Weight 123.8 kg (273 lb) 07/01/2024 5:38 AM COST ACCOUNTING ANALYST Height 188 cm (6' 2) 07/01/2024 5:38 AM COST ACCOUNTING ANALYST Body Mass Index 35.05 07/01/2024 5:38 AM COST ACCOUNTING ANALYST documented in this encounter Medications at Time of Discharge acetaminophen (TYLENOL) 325 MG tabletIndications: Acute postoperative pain Take 2 tablets (650 mg) by mouth every 4 hours as needed for mild pain 50 tablet 03/28/2023 albuterol (PROAIR HFA/PROVENTIL HFA/VENTOLIN HFA) 108 (90 Base) MCG/ACT inhaler Inhale 2 puffs into the lungs every 6 hours as needed for shortness of breath, wheezing or cough. cyclobenzaprine (FLEXERIL) 5 MG tablet Take 5 mg by mouth 3 times daily as needed for muscle spasms. evolocumab (REPATHA SURECLICK) 140 MG/ML prefilled autoinjector Inject 140 mg Subcutaneous every 14 days 08/27/2022 ipratropium - albuterol 0.5 mg/2.5 mg/3 mL (DUONEB) 0.5-2.5 (3) MG/3ML neb solution Take 1 vial by nebulization every 6 hours as needed for shortness of breath, wheezing or cough. naproxen sodium 220 MG capsule Take 220 mg by mouth 2 times daily as needed oxyCODONE (ROXICODONE) 5 MG tablet Take 5-10 mg by mouth every 4 hours as needed for severe pain. documented as of this encounter ED Notes * Quinton Manzanares RN - 07/01/2024 6:23 PM CST Report given to EMS, pt moved over from ER bed to EMS cot with assist of 5, tolerated well. ACCOUNTING ANALYST * Quinton Manzanares RN - 07/01/2024 2:35 PM CST Pt turned on side. Placed pillow with ice bag on back and pillow between legs. ACCOUNTING ANALYST * Quinton Manzanares RN - 07/01/2024 12:00 PM CST Following ketamine administration pt got confused, saying I can't think and just repeating I, I, I, I can't talk. Pt placed on the monitor. MD informed and came to assess pt. Pt able to relax legs and able to extend legs after having them pulled up towards body. After about 5 min. Pt stopped moaning and pt appeared to relax his body. Pt continues on 2LNC ACCOUNTING ANALYST * Suraj Cantrell MD - 07/01/2024 7:13 AM CST Emergency Department Note History of Present Illness Chief Complaint Post-op Problem HPI Raj Hager is a 74 year old male with history of spinal stenosis of lumbar region and CAD who presents to the ED for evaluation of post-op problem. Patient had lumbar fusion of L3 and L4 on the 06/28 and was discharge home on 06/29. Patient reports that he started to experience paresthesia to his right thigh on this way home on the . Later the numbness went away. He states that he started to have severe pain and weakness to his legs, more on his right leg yesterday. The leg pain became unbearable today. The leg pain is also accompanied with back pain that started after his Oxycodone medication worn off. He called his surgical team and was told go the ED. His surgical drain was removed yesterday. He denies saddle anesthesia, fever, chills, uncontrolled bowel movement, or urinary incontinence. Independent Historian None Review of External Notes I reviewed the procedure note from 06/28/2024 reviewing the patient's surgery. I reviewed the hospitalist consult note from 06/28/2024 reviewing his chronic medical problems and recent surgical history. 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 Mixed hyperlipidemia Medications Naproxen Albuterol Nebulizer Oxycodone Senokot Flexeril Surgical History Achilles tendon surgery Appendectomy Colonoscopy L3 to L4-left Rotator cuff repair Transposition ulnar nerve (elbow) Vasectomy Physical Exam Patient Vitals for the past 24 hrs: BP Temp Temp src Pulse Resp SpO2 Height Weight 07/01/24 1315 126/82 -- -- 60 10 94 % -- -- 07/01/24 1030 132/80 -- -- 59 -- 96 % -- -- 07/01/24 1017 127/77 -- -- 62 -- -- -- -- 07/01/24 0947 112/63 -- -- 57 -- 96 % -- -- 07/01/24 0932 111/66 -- -- 56 -- 96 % -- -- 07/01/24 0902 116/88 -- -- 56 -- 96 % -- -- 07/01/24 0852 121/81 -- -- -- -- 96 % -- -- 07/01/24 0837 128/76 -- -- -- -- 96 % -- -- 07/01/24 0822 124/80 -- -- -- -- 95 % -- -- 07/01/24 0800 130/80 -- -- 58 -- 94 % -- -- 07/01/24 0730 (!) 135/92 -- -- -- -- 97 % -- -- 07/01/24 0649 -- -- -- -- -- 96 % -- -- 07/01/24 0645 136/83 -- -- 61 -- (!) 88 % -- -- 07/01/24 0538 (!) 144/78 97.7 ??F (36.5 ??C) Temporal 76 18 94 % 1.88 m (6' 2) 123.8 kg (273 lb) Physical Exam Vitals and nursing note reviewed. Constitutional: General: He is in acute distress (moderate painful distress). Appearance: He is not ill-appearing. HENT: Head: Normocephalic and atraumatic. Right Ear: External ear normal. Left Ear: External ear normal. Nose: Nose normal. Eyes: Conjunctiva/sclera: Conjunctivae normal. Cardiovascular: Rate and Rhythm: Normal rate and regular rhythm. Pulses: Dorsalis pedis pulses are 2+ on the right side and 2+ on the left side. Posterior tibial pulses are 2+ on the right side and 2+ on the left side. Heart sounds: No murmur heard. Pulmonary: Effort: Pulmonary effort is normal. No respiratory distress. Breath sounds: No wheezing, rhonchi or rales. Abdominal: General: Abdomen is flat. There is no distension. Palpations: Abdomen is soft. Tenderness: There is no abdominal tenderness. There is no guarding or rebound. Musculoskeletal: General: No swelling or deformity. Cervical back: Normal range of motion and neck supple. Skin: General: Skin is warm and dry. Findings: No rash. Neurological: Mental Status: He is alert and oriented to person, place, and time. Sensory: No sensory deficit. Motor: No weakness (intact 5/5 strength thru BLE). Psychiatric: Behavior: Behavior normal. Diagnostics Lab Results Labs Ordered and Resulted from Time of ED Arrival to Time of ED Departure CRP INFLAMMATION - Abnormal Result Value CRP Inflammation 68.02 (*) CBC WITH PLATELETS AND DIFFERENTIAL - Abnormal WBC Count 8.7 RBC Count 4.67 Hemoglobin 14.6 Hematocrit 42.6 MCV 91 MCH 31.3 MCHC 34.3 RDW 13.4 Platelet Count 176 % Neutrophils 64 % Lymphocytes 19 % Monocytes 17 % Eosinophils 0 % Basophils 0 % Immature Granulocytes 1 NRBCs per 100 WBC 0 Absolute Neutrophils 5.5 Absolute Lymphocytes 1.6 Absolute Monocytes 1.4 (*) Absolute Eosinophils 0.0 Absolute Basophils 0.0 Absolute Immature Granulocytes 0.0 Absolute NRBCs 0.0 BASIC METABOLIC PANEL - Normal Sodium 138 Potassium 3.9 Chloride 101 Carbon Dioxide (CO2) 26 Anion Gap 11 Urea Nitrogen 22.3 Creatinine 0.91 GFR Estimate 90 Calcium 8.8 Glucose 99 ERYTHROCYTE SEDIMENTATION RATE AUTO - Normal Erythrocyte Sedimentation Rate 8 Imaging Lumbar spine MRI w & w/o contrast - surgery <10yrs Final Result IMPRESSION: 1. There are extensive postsurgical changes at L3-4 with postoperative findings at this level. There are some blood products and fluid in the dorsal epidural space relative to the recent operative intervention as well as paraspinal muscular edema from prior operative intervention as well. Lumbar spine XR, 2-3 views Final Result IMPRESSION: Five lumbar segments. Postoperative changes of anterior/posterior instrumentation fusion L3-L4. This appears uncomplicated with no posterior hardware fracture/failure or lucency about thetranspedicular screws bilaterally. Anterior interbody fusion appears only partially integrated, however. Interspace narrowing above and below the fusion level with adjacent endplate osteophyte. Low-grade retrolisthesis L2-L3 of about 2-3 mm is noted. 1 mm retrolisthesis L5-S1. No high-grade subluxations. Satisfactory sacral alignment. Sacral neural foramina are intact. Joint space narrowing both hips. Vascular calcification. No acute process overall. Removal of right-sided drain from prior study. No other significant change from 06/29/2024. EKG None. Independent Interpretation X-ray L spine shows intact hardware without fx ED Course Medications Administered Medications HYDROmorphone (DILAUDID) injection 1 mg (1 mg Intravenous $Given 07/01/24 1257) HYDROmorphone (PF) (DILAUDID) injection 0.5 mg (0.5 mg Intravenous $Given 07/01/24 0956) methocarbamol (ROBAXIN) tablet 500 mg (500 mg Oral $Given 07/01/24 0802) gadobutrol (GADAVIST) injection 12 mL (12 mLs Intravenous $Given 07/01/24 1039) diazepam (VALIUM) injection 5 mg (5 mg Intravenous $Given 07/01/24 1030) HYDROmorphone (PF) (DILAUDID) injection 0.5 mg (0.5 mg Intravenous $Given 07/01/24 1056) ketamine (KETALAR) (HIGH CONC) inj 30 mg (30 mg Intravenous $Given 07/01/24 1151) Procedures Procedures Discussion of Management Neurosurgery, Dr. Granados Admitting Hospitalist, Dr Wing ED Course ED Course as of 07/01/24 1320 Sun Jul 01, 2024 0620 I obtained history and examined the patient as noted above. [address] Dimirtis Granados. 0722 I rechecked and updated the patient. 1155 I rechecked and updated the patient. [address] Wing Additional Documentation None Medical Decision Making / Diagnosis [facility] Diagnoses: None MIPS None [facility] Raj Hager is a 74 year old male who presents with severe bilateral leg and low back pain after surgery on 06/28. He does seem to be neurologically intact on exam and there are no red flags to suggest spinal cord compression or cauda equina syndrome. The wound has some slight bloody drainage but minimal and no purulence, no significant surrounding erythema or fluctuance. He has not been febrile and have a low suspicion for infection at this point. Patient was given IV pain medications and I discussed with the on-call surgeon from [facility] spine and reviewed the case with him. He recommended that we start with an x-ray which was performed and showed no significant complications from the surgery. We then proceeded to do an MRI and this showed blood products and fluid in the postoperative area. The surgeon was able to review these images and did not feel there is anything emergently the need to be done surgically. However the pain continued to be severe and the patient required multiple rounds of opiate pain medications as well as muscle relaxant including Valium and Robaxin. He also received a dose of IV ketamine for pain control given his ongoing severe pain with difficulty controlling it with IV medications, I feel that he needs hospitalization and evaluation by surgery team. Given that his surgery was performed in the [facility] system, I discussed with the hospitalist, Dr. Wing, who accepts the transfer to [facility]. Disposition The patient was transferred to [facility] via EMS. Dr. Wing accepted the patient for transfer. Diagnosis ICD-10-CM 1. Acute post-operative pain G89.18 Discharge Medications New Prescriptions No medications on file Scribe Disclosure: I, Mirtha Alvarez, am serving as a scribe at 7:30 AM on 07/01/2024 to document services personally performed by Suraj Cantrell MD based on my observations and the provider's statements to me. Suraj Cantrell MD 07/01/24 1325 ACCOUNTING ANALYST * Lovely Stapleton RN - 07/01/2024 5:35 AM CST Pt had a lumbar fusion on 06/28 and went home 06/29. Pt reports pain in his right thigh that started on his way home from the hospital. Pt reports he did have pain in the leg while in the hospital, butincreased on his way home. ACCOUNTING ANALYST documented in this encounter Miscellaneous Notes * Pharmacy-Admission Medication History - Bianka Wilson RPH - 07/01/2024 2:40 PM CST Pharmacist Admission Medication History Admission medication history is complete. The information provided in this note is only as accurateas the sources available at the time of the update. Information Source(s): Patient and Family member via in-person Pertinent Information: Pt states was using Tylenol and oxycodone throughout night last night. Pt states due for next Repatha dose this coming Tuesday. Changes made to [facility] medication list: Added: Ventolin, flexeril, duoneb, oxycodone Deleted: None Changed: None Allergies reviewed with patient and updates made in EHR: yes Medication History Completed By: Bianka Wilson RPH 07/01/2024 2:40 PM [facility] Med List Medication Sig Last Dose/Taking acetaminophen (TYLENOL) 325 MG tablet Take 2 tablets (650 mg) by mouth every 4 hours as needed for mild pain 07/01/2024 Morning albuterol (PROAIR HFA/PROVENTIL HFA/VENTOLIN HFA) 108 (90 Base) MCG/ACT inhaler Inhale 2 puffs intothe lungs every 6 hours as needed for shortness of breath, wheezing or cough. Taking As Needed cyclobenzaprine (FLEXERIL) 5 MG tablet Take 5 mg by mouth 3 times daily as needed for muscle spasms. Taking As Needed evolocumab (REPATHA SURECLICK) 140 MG/ML prefilled autoinjector Inject 140 mg Subcutaneous every 14days Past Month ipratropium - albuterol 0.5 mg/2.5 mg/3 mL (DUONEB) 0.5-2.5 (3) MG/3ML neb solution Take 1 vial by nebulization every 6 hours as needed for shortness of breath, wheezing or cough. Taking As Needed naproxen sodium 220 MG capsule Take 220 mg by mouth 2 times daily as needed Taking As Needed oxyCODONE (ROXICODONE) 5 MG tablet Take 5-10 mg by mouth every 4 hours as needed for severe pain. 07/01/2024 Morning ACCOUNTING ANALYST documented in this encounter Plan of Treatment Not on file documented as of this encounter Goals Goal Patient Goal Type Associated Problems Recent Progress Patient-Stated? Author MYC ECC SURG E[facility]OLL Care Plan MyC ECC SURG ENROLL No Willard, Fabby Christel documented as of this encounter Procedures Procedure Name Priority Date/Time Associated Diagnosis Comments MR LUMBAR SPINE W/O & W CONTRAST STAT 07/01/2024 11:46 AM COST ACCOUNTING ANALYST XR LUMBAR SPINE 2/3 VIEWS STAT 07/01/2024 7:53 AM COST ACCOUNTING ANALYST EXTRA TUBE STAT 07/01/2024 5:59 AM COST ACCOUNTING ANALYST EXTRA RED TOP TUBE STAT 07/01/2024 5: 59 AM COST ACCOUNTING ANALYST EXTRA BLUE TOP TUBE STAT 07/01/2024 5 :59 AM COST ACCOUNTING ANALYST CBC WITH PLATELETS AND DIFFERENTIAL STAT 07/01/2024 5:59 AM COST ACCOUNTING ANALYST CBC WITH PLATELETS & DIFFERENTIAL STAT 07/01/2024 5:59 AM COST ACCOUNTING ANALYST ERYTHROCYTE SEDIMENTATION RATE AUTO STAT 07/01/2024 5:59 AM COST ACCOUNTING ANALYST CRP INFLAMMATION STAT 07/01/2024 5:59 AM COST ACCOUNTING ANALYST BASIC METABOLIC PANEL STAT 07/01/2024 5:59 AM COST ACCOUNTING ANALYST documented in this encounter Results * Lumbar spine MRI w & w/o contrast - surgery <10yrs (07/01/2024 11:46 AM COST ACCOUNTING ANALYST) Anatomical Region Laterality Modality Spine, SUBRAD MR NEURO, UMP MR SPINE, RAD MR Magnetic Resonance 07/01/2024 11:4 6 AM COST ACCOUNTING ANALYST Impressions 07/01/2024 12:10 PM COST ACCOUNTING ANALYST IMPRESSION: 1. There are extensive postsurgical changes at L3-4 with postoperative findings at this level. There are some blood products and fluid in the dorsal epidural space relative to the recent operative intervention as well as paraspinal muscular edema from prior operative intervention as well. Narrative 07/01/2024 12:10 PM COST ACCOUNTING ANALYST EXAM: MR LUMBAR SPINE W/O and W CONTRAST LOCATION: [facility] DATE: 07/01/2024 INDICATION: post op back pain radiating into both legs, recent L3 4 fusion COMPARISON: Plain film 06/28/2024 and 06/29/[address] lumbar spine preoperative from 04/12/2024] CONTRAST: 12mL Gadavist TECHNIQUE: Routine Lumbar Spine MRI without and with IV contrast. FINDINGS: The patient has a recent history of surgical intervention with posterior fusion hardware at L3-4 which is new from 04/12/2024. Surgery was performed on 06/28/2024. Postoperative changes at L3-4 with some postsurgical fluid in the dorsal epidural space likely cash posting representative of seroma and some postoperative blood products at the level of L3-4. There is moderate canal stenosis at L3-4. Mild canal stenosis at L4-5. Mild canal stenosis at L2-3. Straightening of the normal lumbar curvature inferiorly with trace retrolisthesis of L2 on L3. Paraspinal STIR edema in the musculature reflects sequela related to the recent operative intervention. Postcontrast imaging demonstrates no clear findings of significant worrisome enhancement. There is some periureteral fluid likely postoperative in nature at the levels of L3 on L4 dorsally. Procedure Note Regaan Garcia MD - 07/01/2024 EXAM: MR LUMBAR SPINE W/O and W CONTRAST LOCATION: [facility] DATE: 07/01/2024 INDICATION: post op back pain radiating into both legs, recent L3 4fusion COMPARISON: Plain film 06/28/2024 and 06/29/[address] lumbar spinepreoperative from 04/12/2024] CONTRAST: 12mL Gadavist TECHNIQUE: Routine Lumbar Spine MRI without and with IV contrast. FINDINGS: The patient has a recent history of surgical intervention with posteriorfusion hardware at L3-4 which is new from 04/12/2024. Surgery wasperformed on 06/28/2024. Postoperative changes at L3-4 with some postsurgical fluid in the dorsalepidural space likely cash posting representative of seroma and some postoperativeblood products at the level of L3-4. There is moderate canal stenosis atL3-4. Mild canal stenosis at L4-5. Mild canal stenosis at L2-3. Straightening of the normal lumbar curvatureinferiorly with trace retrolisthesis of L2 on L3. Paraspinal STIR edema inthe musculature reflects sequela related to the recent operativeintervention. Postcontrast imaging demonstrates no clear findings of significant worrisome enhancement. Thereis some periureteral fluid likely postoperative in nature at the levels ofL3 on L4 dorsally. IMPRESSION: 1. There are extensive postsurgical changes at L3-4 with postoperativefindings at this level. There are some blood products and fluid in thedorsal epidural space relative to the recent operative intervention aswell as paraspinal muscular edema from prior operative intervention as well. us Suraj Cantrell MD IMG MRI ORDERABLES Final Resu lt * Lumbar spine XR, 2-3 views (07/01/2024 7:53 AM COST ACCOUNTING ANALYST) Anatomical Region Laterality Modality Spine, T-spine, L-spine, Abdomen/Pelvis Digital Radiography 07/01/2024 7:53 AM COST ACCOUNTING ANALYST Impressions 07/01/2024 8:10 AM COST ACCOUNTING ANALYST IMPRESSION: Five lumbar segments. Postoperative changes of anterior/posterior instrumentation fusion L3-L4. This appears uncomplicated with no posterior hardware fracture/failure or lucency about the transpedicular screws bilaterally. Anterior interbody fusion appears only partially integrated, however. Interspace narrowing above and below the fusion level with adjacent endplate osteophyte. Low-grade retrolisthesis L2-L3 of about 2-3 mm is noted. 1 mm retrolisthesis L5-S1. No high-grade subluxations. Satisfactory sacral alignment. Sacral neural foramina are intact. Joint space narrowing both hips. Vascular calcification. No acute process overall. Removal of right-sided drain from prior study. No other significant change from 06/29/2024. Narrative 07/01/2024 8:10 AM COST ACCOUNTING ANALYST EXAM: XR LUMBAR SPINE 2/3 VIEWS LOCATION: [facility] DATE: 07/01/2024 INDICATION: Postop back pain. COMPARISON: 06/29/2024 plain film imaging. Procedure Note Jordan Calderón MD - 07/01/2024 EXAM: XR LUMBAR SPINE 2/3 VIEWS LOCATION: [facility] DATE: 07/01/2024 INDICATION: Postop back pain. COMPARISON: 06/29/2024 plain film imaging. IMPRESSION: Five lumbar segments. Postoperative changes ofanterior/posterior instrumentation fusion L3-L4. This appearsuncomplicated with no posterior hardware fracture/failure or lucency aboutthe transpedicular screws bilaterally. Anterior interbody fusion appears only partially integrated, however. Interspace narrowingabove and below the fusion level with adjacent endplate osteophyte.Low-grade retrolisthesis L2-L3 of about 2-3 mm is noted. 1 mmretrolisthesis L5-S1. No high-grade subluxations. Satisfactory sacral alignment. Sacral neural foramina are intact. Jointspace narrowing both hips. Vascular calcification. No acute processoverall. Removal of right-sided drain from prior study. No othersignificant change from 06/29/2024. Suraj Cantrell MD IMG DIAGNOSTIC IMAGING ORDERA BLES Final Result * Extra Red Top Tube (07/01/2024 5:59 AM COST ACCOUNTING ANALYST) [facility] Signature Hold Specimen [facility] 07/01/2024 7:17 AM COST ACCOUNTING ANALYST [facility] Blood BLOOD SPECIMEN / Unknown Venipuncture / Unknown 07/01/2024 5:59 AM COST ACCOUNTING ANALYST 07/01/2024 6:07 AM COST ACCOUNTING ANALYST Suraj Cantrell MD LAB - BLOOD ORDERABLES Final Result [facility] [address] Lab (1st floor, no room number) [place] [address], [facility] * Extra Blue Top Tube (07/01/2024 5:59 AM COST ACCOUNTING ANALYST) Hold Specimen [facility] 07/01/2024 7:17 AM COST ACCOUNTING ANALYST LABORATORY Blood BLOOD SPECIMEN / Unknown Venipuncture / Unknown 07/01/2024 5:59 AM COST ACCOUNTING ANALYST 07/01/2024 6:07 AM COST ACCOUNTING ANALYST us Suraj Cantrell MD LAB - BLOOD ORDERABLES Final Result [facility] [address] Lab (1st floor, no room number) [place] [phone] * (ABNORMAL) CBC with platelets and differential (07/01/2024 5:59 AM COST ACCOUNTING ANALYST) [facility] Signature WBC Count 8.7 4.0 - 11.0 10e3/uL 07/01/2024 6:14 AM COST ACCOUNTING ANALYST [facility] RBC Count 4.67 4.40 - 5.90 10e6/uL 07/01/2024 6:14 AM COST ACCOUNTING ANALYST [facility] Hemoglobin 14.6 13.3 - 17.7 g/dL 07/01/2024 6:14 AM COST ACCOUNTING ANALYST [facility] Hematocrit 42.6 40.0 - 53.0 % 07/01/2024 6:14 AM COST ACCOUNTING ANALYST [facility] MCV 91 78 - 100 fL 07/01/2024 6:14 AM COST ACCOUNTING ANALYST [facility] MCH 31.3 26.5 - 33.0 pg 07/01/2024 6:14 AM COST ACCOUNTING ANALYST [facility] MCHC 34.3 31.5 - 36.5 g/dL 07/01/2024 6:14 AM COST ACCOUNTING ANALYST [facility] RDW 13.4 10.0 - 15.0 % 07/01/2024 6:14 AM COST ACCOUNTING ANALYST [facility] Platelet Count 176 150 - 450 10e3/uL 07/01/2024 6:14 AM COST ACCOUNTING ANALYST [facility] % Neutrophils 64 % 07/01/2024 6:14 AM COST ACCOUNTING ANALYST [facility] % Lymphocytes 19 % 07/01/2024 6:14 AM COST ACCOUNTING ANALYST [facility] % Monocytes 17 % 07/01/2024 6:14 AM COST ACCOUNTING ANALYST [facility] % Eosinophils 0 % 07/01/2024 6:14 AM COST ACCOUNTING ANALYST [facility] % Basophils 0 % 07/01/2024 6:14 AM COST ACCOUNTING ANALYST [facility] % Immature Granulocytes 1 % 07/01/2024 6:14 AM COST [facility] NRBCs per 100 WBC 0 <1 /100 025 6:14 AM COST ACCOUNTING ANALYST [facility] Absolute Neutrophils 5.5 1.6 - 8.3 10e3/uL 07/01/2024 6:14 AM COST ACCOUNTING ANALY[facility] Absolute Lymphocytes 1.6 0.8 - 5.3 10e3/uL 07/01/2024 6:14 AM COST ACCOUNTING ANALY[facility] Absolute Monocytes 1.4(H) 0.0 - 1.3 10e3/uL 07/01/2024 6:14 AM [facility] ACCOUNTING ANA[facility] Absolute Eosinophils 0.0 0.0 - 0.7 10e3/uL 07/01/2024 6:14 AM [facility]OUNTING [facility]NA[facility] Absolute Basophils 0.0 0.0 - 0.2 10e3/uL 07/01/2024 6:14 AM [facility]OUNTING [facility]NA[facility] Absolute Immature Granulocytes 0.0 <=0.4 10e3/uL 07/01/2024 6:14 AM [facility] ACCOUNTING ANALY[facility] Absolute NRBCs 0.0 10e3/uL 07/01/2024 6:14 AM [facility]OUNT[facility]NA[facility] Blood BLOOD SPECIMEN / Unknown Venipuncture / Unknown 07/01/2024 5:59 AM COST ACCOUNTING ANALYST 07/01/2024 6:05 AM COST ACCOUNTING ANALYST Ector Chambers MD LAB - BLOOD ORDER ÓSCAR Final Result [facility] [address] Lab (1st floor, no room number) [place] [phone] [place] [address] * Erythrocyte sedimentation rate auto (07/01/2024 5:59 AM COST ACCOUNTING ANALYST) Erythrocyte Sedimentation Rate 8 0 - 20 mm/hr 07/01/2024 6:31 AM CO[facility] ACCOUNTING ANALY[facility] Blood BLOOD SPECIMEN / Unknown Venipuncture / Unknown 07/01/2024 5:59 AM COST ACCOUNTING ANALYST 07/01/2024 6:05 AM COST ACCOUNTING ANALYST Ector Chambers MD LAB - BLOOD ORDER ÓSCAR Final Result [facility] [address] Lab (1st floor, no room number) [place] [phone] [place] [address] * (ABNORMAL) CRP inflammation (07/01/2024 5:59 AM COST ACCOUNTING ANALYST) CRP Inflammation 68.02(H) <5.00 mg/L 07/01/2024 6:42 AM [facility]OUNTING [facility]NA[facility] Blood BLOOD SPECIMEN / Unknown Venipuncture / Unknown 07/01/2024 5:59 AM COST ACCOUNTING ANALYST 07/01/2024 6:07 AM COST ACCOUNTING ANALYST Ector Chambers MD LAB - BLOOD ORDER ÓSCAR Final Result [facility] [address] Lab (1st floor, no room number) [place] [address], [facility] * Basic metabolic panel (07/01/2024 5:59 AM COST ACCOUNTING ANALYST) [facility] Sodium 138 135 - 145 mmol/L 07/01/2024 6:42 AM [facility] Potassium 3.9 3.4 - 5.3 mmol/L 07/01/2024 6:42 AM [facility] Chloride 101 98 - 107 mmol/L 07/01/2024 6:42 AM [facility] Carbon Dioxide (CO2) 26 22 - 29 mmol/L 07/01/2024 6:42 AM [facility] Anion Gap 11 7 - 15 mmol/L 07/01/2024 6:42 AM [facility] Urea Nitrogen 22.3 8.0 - 23.0 mg/dL 07/01/2024 6:42 AM [facility] Creatinine 0.91 0.67 - 1.17 mg/dL 07/01/2024 6:42 AM [facility] GFR Estimate 90 >60 mL/min/1.7 3m2 07/01/2024 6:42 AM [facility] Comment:eGFR calculated usia g 2020 CKD-EPI equation. Calcium 8.8 8.8 - 10.4 mg/dL 07/01/2024 6:42 AM [facility] Glucose 99 70 - 99 mg/dL 07/01/2024 6:42 AM [facility] Blood BLOOD SPECIMEN / Unknown Venipuncture / Unknown 07/01/2024 5:59 AM COST ACCOUNTING ANALYST 07/01/2024 6:07 AM COST ACCOUNTING ANALYST Ector Chambers MD LAB - BLOOD ORDER ÓSCAR Final Result [facility] [address] Lab (1st floor, no room number) [place] [address], [facility] documented in this encounter Visit Diagnoses Diagnosis Acute post-operative pain Other acute postoperative pain documented in this encounter Administered Medications Inactive Administered Medications - up to 3 most recent administrations Medication Order MAR Action Action Date Dose Rate Site diazepam (VALIUM) injection 5 mg 5 mg, Intravenous, Administer over 1-4 Minutes, ONCE, On 07/01/24 at 1025, For 1 dose, This drug may cause significant respiratory depression. Monitor respiratory status and vital signs carefully for 1 hour after each dose. $Given 07/01/2024 10:30 AM COST ACCOUNTING ANALYST 5 mg gadobutrol (GADAVIST) injection 12 mL 12 mL, Intravenous, ONCE, On 07/01/24 at 1025, For 1 dose, Supplied by, and administered by MRI. $Given 07/01/2024 10:39 AM COST ACCOUNTING ANALYST 12 mLs HYDROmorphone (DILAUDID) injection 1 mg 1 mg, Intravenous, EVERY 30 MIN PRN, moderate pain, severe pain, Starting on 07/01/24 at 1235, For 3 doses, Notify the provider to assess for uncontrolled pain or analgesic side effects. Hold while on IV HAND ROUNDER or with regular IV opioid dosing. $Given 07/01/2024 3:31 PM COST ACCOUNTING ANALYST 1 mg $Given 07/01/2024 2:19 PM COST ACCOUNTING ANALYST 1 mg $Given 07/01/2024 12:57 PM COST ACCOUNTING ANALYST 1 mg HYDROmorphone (PF) (DILAUDID) injection 0.5 mg 0.5 mg, Intravenous, EVERY 30 MIN PRN, moderate pain, severe pain, Starting on 07/01/24 at 0638, For 3 doses, Notify the provider to assess for uncontrolled pain or analgesic side effects. Hold while on IV HAND ROUNDER or with regular IV opioid dosing. $Given 07/01/2024 9:56 AM COST ACCOUNTING ANALYST 0.5 mg $Given 07/01/2024 7:34 AM COST ACCOUNTING ANALYST 0.5 mg $Given 07/01/2024 6:41 AM COST ACCOUNTING ANALYST 0.5 mg HYDROmorphone (PF) (DILAUDID) injection 0.5 mg 0.5 mg, Intravenous, ONCE, On 07/01/24 at 1055, For 1 dose $Given 07/01/2024 10:56 AM COST ACCOUNTING ANALYST 0.5 mg HYDROmorphone (PF) (DILAUDID) injection 0.5 mg 0.5 mg, Intravenous, EVERY 1 HOUR PRN, shortness of breath, Starting on Tue07/01/24 at 1557, For 3 doses $Given 07/01/2024 5:42 PM COST ACCOUNTING ANALYST 0.5 mg $Given 07/01/2024 4:32 PM COST ACCOUNTING ANALYST 0.5 mg HYDROmorphone (PF) (DILAUDID) injection 0.5 mg 0.5 mg, Intravenous, ONCE, On Tue07/01/24 at 1805, For 1 dose, Notify the provider to assess for uncontrolled pain or analgesic side effects. Hold while on IV HAND ROUNDER or with regular IV opioid dosing. $Given 07/01/2024 6:07 PM COST ACCOUNTING ANALYST 0.5 mg ketamine (KETALAR) (HIGH CONC) inj 30 mg 30 mg, Intravenous, ONCE, On Tue07/01/24 at 1140, For 1 dose, Must dilute with NS or D5W prior to intravenous administration. Max dose for analgesia on general care nursing unit: 0.2 mg/kg or 20 mg, whichever is lower. $Given 07/01/2024 11:51 AM COST ACCOUNTING ANALYST 30 mg methocarbamol (ROBAXIN) tablet 500 mg 500 mg, Oral, ONCE, On Tue07/01/24 at 0800, For 1 dose $Given 07/01/2024 8:02 AM COST ACCOUNTING ANALYST 500 mg ondansetron (ZOFRAN) injection 4 mg 4 mg, Intravenous, EVERY 30 MIN PRN, nausea, vomiting, Administer over 2-5 Minutes, Starting on Tue07/01/24 at 0638, For 3 doses, May repeat in 30 minutes as needed, up to 3 doses. $Given 07/01/2024 6:41 AM COST ACCOUNTING ANALYST 4 mg documented in this encounter Active and Recently Administered Medications Times are shown in COST ACCOUNTING ANALYST. Scheduled Medication Order 06/29/2024 06/30/2024 07/01/2024 diazepam (VALIUM) injection 5 mg (COMPLETED) 5 mg, Intravenous, Administer over 1-4 Minutes, ONCE, On Tue07/01/24 at 1025, For 1 dose, This drug may cause significant respiratory depression. Monitor respiratory status and vital signs carefully for 1 hour after each dose. 1030 ($Given - Provi lidia: Lisa Wagner RN) gadobutrol (GADAVIST) injection 12 mL (COMPLETED) 12 mL, Intravenous, ONCE, On Tue07/01/24 at 1025, For 1 dose, Supplied by, and administered by MRI. 1039 ($Given - Provi lidia: ZI Seymour) HYDROmorphone (PF) (DILAUDID) injection 0.5 mg (COMPLETED) 0.5 mg, Intravenous, ONCE, On 07/01/24 at 1055, For 1 dose 1056 ($Given - Provi lidia: Lisa Wagner RN) HYDROmorphone (PF) (DILAUDID) injection 0.5 mg (COMPLETED) 0.5 mg, Intravenous, ONCE, On 07/01/24 at 1805, For 1 dose, Notify the provider to assess for uncontrolled pain or analgesic side effects. Hold while on IV HAND ROUNDER or with regular IV opioid dosing. 1807 ($Given - Provi lidia: Quinton Manzanares RN) ketamine (KETALAR) (HIGH CONC) inj 30 mg (COMPLETED) 30 mg, Intravenous, ONCE, On 07/01/24 at 1140, For 1 dose, Must dilute with NS or D5W prior to intravenous administration. Max dose for analgesia on general care nursing unit: 0.2 mg/kg or 20 mg, whichever is lower. 1151 ($Given - Provi lidia: Quinton Manzanares RN) methocarbamol (ROBAXIN) tablet 500 mg (COMPLETED) 500 mg, Oral, ONCE, On 07/01/24 at 0800, For 1 dose 0802 ($Given - Provi lidia: Lisa Wagner RN) PRN Medication Order 06/29/2024 06/30/2024 07/01/2024 HYDROmorphone (DILAUDID) injection 1 mg (COMPLETED) 1 mg, Intravenous, EVERY 30 MIN PRN, moderate pain, severe pain, Starting on 07/01/24 at 1235, For 3 doses, Notify the provider to assess for uncontrolled pain or analgesic side effects. Hold while on IV HAND ROUNDER or with regular IV opioid dosing. 1257 ($Given - Provi lidia: Quinton Manzanares RN)1419 ($Given - Provider: Quinton Manzanares RN)1531 ($Given - Provider: Quinton Manzanares RN) HYDROmorphone (PF) (DILAUDID) injection 0.5 mg (COMPLETED) 0.5 mg, Intravenous, EVERY 30 MIN PRN, moderate pain, severe pain, Starting on 07/01/24 at 0638, For 3 doses, Notify the provider to assess for uncontrolled pain or analgesic side effects. Hold while on IV HAND ROUNDER or with regular IV opioid dosing. 0641 ($Given - Provi lidia: Caryl John RN)0734 ($Given - Provider: Lisa Wagner, RN)0956 ($Given - Provider: Lisa Wagner RN) HYDROmorphone (PF) (DILAUDID) injection 0.5 mg 0.5 mg, Intravenous, EVERY 1 HOUR PRN, shortness of breath, Starting on 07/01/24 at 1557, For 3 doses 1632 ($Given - Provi lidia: Winter Hayward RN)1742 ($Given - Provider: Quinton Manzanares RN) ondansetron (ZOFRAN) injection 4 mg (CANCELED) 4 mg, Intravenous, EVERY 30 MIN PRN, nausea, vomiting, Administer over 2-5 Minutes, Starting on 07/01/24 at 0638, For 3 doses, May repeat in 30 minutes as needed, up to 3 doses. 0641 ($Given - Provi lidia: Caryl John RN) documented in this encounter Additional Health Concerns Active Problems Noted Date Diagnosed Date MyC ECC SURG ENROLL 03/23/2023 documented as of this encounter Care Teams Cash Person Relationship Specialty Start Date End Date Cecil Mercado MD [facility] [id number] [place] [phone] PCP - General Family Medicine 03/28/23 documented as of this encounter
--- OUTSIDE RECORDS SUMMARY | 2024-07-26 02:39 | XMS_ITS | Clinical Summary ---
Author Organization [facility] Address [address] [place] [address] Care Team Providers Care Mainframe Analyst Name Role Phone Cecil Mercado MD Primary Care Provider [phone] Allergies Active Allergy Reactions Criticality Noted Date Comments Statins Muscle Pain (Myalgia) High 07/01/2024 Medications evolocumab (REPATHA SURECLICK) 140 MG/ML prefilled autoinjector Inject 140 mg Subcutaneous every 14 days 08/28/19 23 Active naproxen sodium 220 MG capsule Take 220 mg by mouth 2 times daily as needed Active acetaminophen (TYLENOL) 325 MG tabletIndications :Acute postoperative pain Take 2 tablets (650 mg) by mouth every 4 hours as needed for mild pain 50 tablet 03/28/20 23 Active albuterol (PROAIR HFA/PROVENTIL HFA/VENTOLIN HFA) 108 (90 Base) MCG/ACT inhaler Inhale 2 puffs into the lungs every 6 hours as needed for shortness of breath, wheezing or cough. Active cyclobenzaprine (FLEXERIL) 5 MG tablet Take 5 mg by mouth 3 times daily as needed for muscle spasms. Active ipratropium - albuterol 0.5 mg/2.5 mg/3 mL (DUONEB) 0.5-2.5 (3) MG/3ML neb solution Take 1 vial by nebulization every 6 hours as needed for shortness of breath, wheezing or cough. Active oxyCODONE (ROXICODONE) 5 MG tablet Take 5-10 mg by mouth every 4 hours as needed for severe pain. Active Encounters Date Type Department Care Team Description 07/01/2024 5:39 AM SENIOR CONTROL SYSTEMS ENGINEER - 07/01/2024 6:32 PM Formerly [facility] Dept [address] [place] [address] Suraj Cantrell MD Acute post-operative pain Discharge Disposition: Short Term Hospital 07/01/2024 Travel from Last 3 Months Social History Tobacco Use Types Packs/Day Years [...] on file Legal Sex Male 3:27 AM SENIOR CONTROL SYSTEMS ENGINEER Gender Identity Not on file Sexual Orientation Not on file Last Filed Vital Signs Vital Sign Reading Time Taken Comments Blood Pressure 150/93 07/01/2024 5:59 PM SENIOR CONTROL SYSTEMS ENGINEER Pulse 68 07/01/2024 5:59 PM SENIOR CONTROL SYSTEMS ENGINEER Temperature 36.5 C (97.7 F) 07/01/2024 5:38 AM SENIOR CONTROL SYSTEMS ENGINEER Respiratory Rate 18 07/01/2024 5:59 PM SENIOR CONTROL SYSTEMS ENGINEER Oxygen Saturation 94% 07/01/2024 5:59 PM SENIOR CONTROL SYSTEMS ENGINEER Inhaled Oxygen Concentration - - Weight 123.8 kg (273 lb) 07/01/2024 5:38 AM SENIOR CONTROL SYSTEMS ENGINEER Height 188 cm (6' 2) 07/01/2024 5:38 AM SENIOR CONTROL SYSTEMS ENGINEER Body Mass Index 35.05 07/01/2024 5:38 AM SENIOR CONTROL SYSTEMS ENGINEER Plan of Treatment Health Maintenance Due Date Last Done Comments ADVANCE CARE PLANNING 1952 ANNUAL REVIEW OF HM ORDERS 1952 CT COLONOGRAPHY 1952 FIT 1952 FLEX SIG 1952 sDNA (Cologuard) 1952 LIPID 1992 FALL RISK ASSESSMENT 2017 COVID-19 Vaccine ( season) 2024 06/03/2022, 03/23/2021, 07/26/2020, Additional history exists INFLUENZA VACCINE (#1) 2024 , 03/11/2020, 05/14/2019, Additional history exists PHQ-2 (once per calendar year) 2024 MEDICARE ANNUAL WELLNESS VISIT 07/18/2024 07/19/2023, 07/04/2020 RSV VACCINE (1 - 1-dose 75+ series) 2027 DIABETES SCREENING 07/02/2027 07/01/2024, 03/19/2024 DTAP/TDAP/TD IMMUNIZATION (3 - Td or Tdap) 09/11/2031 09/10/2021, 02/05/2011, 06/10/1999 COLONOSCOPY 03/09/2032 03/09/2022 COLORECTAL CANCER SCREENING 03/09/2032 HEPATITIS C SCREENING Completed 04/09/2016 Pneumococcal Vaccine: 50+ Years Completed 02/07/2020, 08/21/2018 ZOSTER IMMUNIZATION Completed 11/22/2023, HPV IMMUNIZATION Aged Out No longer e ligible based on patient's age to complete this topic MENINGITIS IMMUNIZATION Aged Out No l onger eligible based on patient's age to complete this topic Goals Goal Patient Goal Type Associated Problems Recent Progress Patient-Stated? Author MYC ECC SURG ENROLL Care Plan MyC ECC SURG ENROLL No Fabby Willard Procedures Procedure Name Priority Date/Time Associated Diagnosis Comments MR LUMBAR SPINE W/O & W CONTRAST STAT 07/01/2024 11:46 AM SENIOR CONTROL SYSTEMS ENGINEER XR LUMBAR SPINE 2/3 VIEWS STAT 07/01/2024 7:53 AM SENIOR CONTROL SYSTEMS ENGINEER CBC WITH PLATELETS & DIFFERENTIAL STAT 07/01/2024 5:59 AM SENIOR CONTROL SYSTEMS ENGINEER EXTRA RED TOP TUBE STAT 07/01/2024 5: 59 AM SENIOR CONTROL SYSTEMS ENGINEER EXTRA BLUE TOP TUBE STAT 07/01/2024 5 :59 AM SENIOR CONTROL SYSTEMS ENGINEER CBC WITH PLATELETS AND DIFFERENTIAL STAT 07/01/2024 5:59 AM SENIOR CONTROL SYSTEMS ENGINEER EXTRA TUBE STAT 07/01/2024 5:59 AM SENIOR CONTROL SYSTEMS ENGINEER ERYTHROCYTE SEDIMENTATION RATE AUTO STAT 07/01/2024 5:59 AM SENIOR CONTROL SYSTEMS ENGINEER CRP INFLAMMATION STAT 07/01/2024 5:59 AM SENIOR CONTROL SYSTEMS ENGINEER BASIC METABOLIC PANEL STAT 07/01/2024 5:59 AM SENIOR CONTROL SYSTEMS ENGINEER from Last 3 Months Results * Lumbar spine MRI w & w/o contrast - surgery <10yrs (07/01/2024 11:46 AM SENIOR CONTROL SYSTEMS ENGINEER) Anatomical Region Laterality Modality Spine, SUBRAD MR NEURO, UMP MR SPINE, RAD MR Magnetic Resonance 07/01/2024 11:4 6 AM SENIOR CONTROL SYSTEMS ENGINEER Impressions 07/01/2024 12:10 PM SENIOR CONTROL SYSTEMS ENGINEER IMPRESSION: 1. There are extensive postsurgical changes at L3-4 with postoperative findings at this level. There are some blood products and fluid in the dorsal epidural space relative to the recent operative intervention as well as paraspinal muscular edema from prior operative intervention as well. Narrative 07/01/2024 12:10 PM SENIOR CONTROL SYSTEMS ENGINEER EXAM: MR LUMBAR SPINE W/O and W CONTRAST LOCATION: [facility] DATE: 07/01/2024 INDICATION: post op back pain [...] fluid in the dorsal epidural space likely applications sales representative of seroma and some postoperative blood [...] of L3 on L4 dorsally. Procedure Note Reagan Garcia MD - 07/01/2024 EXAM: MR LUMBAR SPINE W/O and W CONTRAST LOCATION: [facility] DATE: 07/01/2024 INDICATION: post op back pain [...] postsurgical fluid in the dorsalepidural space likely applications sales representative of seroma and some postoperativeblood products [...] spine XR, 2-3 views (07/01/2024 7:53 AM SENIOR CONTROL SYSTEMS ENGINEER) Anatomical Region Laterality Modality Spine, T-spine, L-spine, Abdomen/Pelvis Digital Radiography 07/01/2024 7:53 AM SENIOR CONTROL SYSTEMS ENGINEER Impressions 07/01/2024 8:10 AM SENIOR CONTROL SYSTEMS ENGINEER IMPRESSION: Five lumbar segments. Postoperative changes of [...] change from 06/29/2024. Narrative 07/01/2024 8:10 AM SENIOR CONTROL SYSTEMS ENGINEER EXAM: XR LUMBAR SPINE 2/3 VIEWS LOCATION: [facility] DATE: 07/01/2024 INDICATION: Postop back pain. COMPARISON: 06/29/2024 plain film imaging. Procedure Note Jordan Calderón MD - 07/01/2024 EXAM: XR LUMBAR SPINE 2/3 VIEWS LOCATION: [facility] DATE: 07/01/2024 INDICATION: Postop back pain. COMPARISON: [...] prior study. No othersignificant change from 06/29/2024. us Suraj Cantrell MD IMG DIAGNOSTIC IMAGING ORDERA BLES Final Result * Extra Red Top Tube (07/01/2024 5:59 AM SENIOR CONTROL SYSTEMS ENGINEER) Pathologist [facility] [place] Hold Specimen [facility] 07/01/2024 7:17 AM SENIOR CONTROL SYSTEMS ENGINEER LABORATORY Blood BLOOD SPECIMEN / Unknown Venipuncture / Unknown 07/01/2024 5:59 AM SENIOR CONTROL SYSTEMS ENGINEER 07/01/2024 6:07 AM SENIOR CONTROL SYSTEMS ENGINEER us Suraj Cantrell MD LAB - BLOOD ORDERABLES Final Result [facility]AT[facility] [address] Lab (1st floor, no room number) [place] [phone] [place] [address] * Extra Blue Top Tube (07/01/2024 5:59 AM SENIOR CONTROL SYSTEMS ENGINEER) Hold Specimen [facility] 07/01/2024 7:17 AM SENIOR CONTROL SYSTEMS ENGINEER LABORATORY Blood BLOOD SPECIMEN / Unknown Venipuncture / Unknown 07/01/2024 5:59 AM SENIOR CONTROL SYSTEMS ENGINEER 07/01/2024 6:07 AM SENIOR CONTROL SYSTEMS ENGINEER us Suraj Cantrell MD LAB - BLOOD ORDERABLES Final Result LABORATORY [facility] [address] Lab (1st floor, no room number) [place] [phone] * (ABNORMAL) CBC with platelets and differential (07/01/2024 5:59 AM SENIOR CONTROL SYSTEMS ENGINEER) WBC Count 8.7 4.0 - 11.0 10e3/uL 07/01/2024 6:14 AM SENIOR CONTROL SYSTEMS ENGINEER [facility] RBC Count 4.67 4.40 - 5.90 10e6/uL 07/01/2024 6:14 AM SENIOR CONTROL SYSTEMS ENGINEER [facility] Hemoglobin 14.6 13.3 - 17.7 g/dL 07/01/2024 6:14 AM SENIOR CONTROL SYSTEMS ENGINEER [facility] Hematocrit 42.6 40.0 - 53.0 % 07/01/2024 6:14 AM SENIOR CONTROL SYSTEMS ENGINEER [facility] MCV 91 78 - 100 fL 07/01/2024 6:14 AM SENIOR CONTROL SYSTEMS ENGINEER [facility] MCH 31.3 26.5 - 33.0 pg 07/01/2024 6:14 AM SENIOR CONTROL SYSTEMS ENGINEER [facility] MCHC 34.3 31.5 - 36.5 g/dL 07/01/2024 6:14 AM SENIOR CONTROL SYSTEMS ENGINEER [facility] RDW 13.4 10.0 - 15.0 % 07/01/2024 6:14 AM SENIOR CONTROL SYSTEMS ENGINEER [facility] Platelet Count 176 150 - 450 10e3/uL 07/01/2024 6:14 AM SENIOR CONTROL SYSTEMS ENGINEER [facility] % Neutrophils 64 % 07/01/2024 6:14 AM SENIOR CONTROL SYSTEMS ENGINEER [facility] % Lymphocytes 19 % 07/01/2024 6:14 AM SENIOR CONTROL SYSTEMS ENGINEER [facility] % Monocytes 17 % 07/01/2024 6:14 AM SENIOR CONTROL SYSTEMS ENGINEER [facility] % Eosinophils 0 % 07/01/2024 6:14 AM SENIOR CONTROL SYSTEMS ENGINEER [facility] % Basophils 0 % 07/01/2024 6:14 AM SENIOR CONTROL SYSTEMS ENGINEER [facility] % Immature Granulocytes 1 % 07/01/2024 6:14 AM SENIOR CONTROL SYSTEMS ENGINEER [facility] NRBCs per 100 WBC 0 <1 /100 025 6:14 AM SENIOR CONTROL SYSTEMS ENGINEER [facility] Absolute Neutrophils 5.5 1.6 - 8.3 10e3/uL 07/01/2024 6:14 AM SENIOR CONTROL SYSTEMS ENGINEER [facility] Absolute Lymphocytes 1.6 0.8 - 5.3 10e3/uL 07/01/2024 6:14 AM SENIOR CONTROL SYSTEMS ENGINEER [facility] Absolute Monocytes 1.4(H) 0.0 - 1.3 10e3/uL 07/01/2024 6:14 AM SENIOR CONTROL SYSTEMS ENGINEER [facility] Absolute Eosinophils 0.0 0.0 - 0.7 10e3/uL 07/01/2024 6:14 AM SENIOR CONTROL SYSTEMS ENGINEER [facility] Absolute Basophils 0.0 0.0 - 0.2 10e3/uL 07/01/2024 6:14 AM SENIOR CONTROL SYSTEMS ENGINEER [facility] Absolute Immature Granulocytes 0.0 <=0.4 10e3/uL 07/01/2024 6:14 AM SENIOR CONTROL SYSTEMS ENGINEER [facility] Absolute NRBCs 0.0 10e3/uL 07/01/2024 6:14 AM SENIOR CONTROL SYSTEMS ENGINEER [facility] Blood BLOOD SPECIMEN / Unknown Venipuncture / Unknown 07/01/2024 5:59 AM SENIOR CONTROL SYSTEMS ENGINEER 07/01/2024 6:05 AM SENIOR CONTROL SYSTEMS ENGINEER us Ector Chambers MD LAB - BLOOD ORDER ÓSCAR Final Result [facility] [address] [facility] ([facility]st [facility], no room number) [place] [address], [facility] * Erythrocyte sedimentation rate auto (07/01/2024 5:59 AM SENIOR CONTROL SYSTEMS ENGINEER) Pathologist [facility] [place] Erythrocyte Sedimentation Rate 8 0 - 20 mm/hr 07/01/2024 6:31 AM SENIOR CONTROL SYSTEMS ENGINEER [facility] Blood BLOOD SPECIMEN / Unknown Venipuncture / Unknown 07/01/2024 5:59 AM SENIOR CONTROL SYSTEMS ENGINEER 07/01/2024 6:05 AM SENIOR CONTROL SYSTEMS ENGINEER Ector Chambers MD LAB - BLOOD ORDER ÓSCAR Final Result LABORATORY [facility] [address] Lab (1st floor, no room number) [place] [phone] [place] [address] * (ABNORMAL) CRP inflammation (07/01/2024 5:59 AM SENIOR CONTROL SYSTEMS ENGINEER) Pathologist [facility] [place] CRP Inflammation 68.02(H) <5.00 mg/L 07/01/2024 6:42 AM [facility] Blood BLOOD SPECIMEN / Unknown Venipuncture / Unknown 07/01/2024 5:59 AM SENIOR CONTROL SYSTEMS ENGINEER 07/01/2024 6:07 AM SENIOR CONTROL SYSTEMS ENGINEER Ector Chambers MD LAB - BLOOD ORDER ÓSCAR Final Result [facility] Care Lab [address] Lab (1st floor, no room number) [address] * Basic metabolic panel (07/01/2024 5:59 AM SENIOR CONTROL SYSTEMS ENGINEER) Pathologist [facility] [place] Sodium 138 135 - 145 mmol/L 07/01/2024 6:42 AM [facility] Potassium 3.9 3.4 - 5.3 mmol/L 07/01/2024 6:42 AM [facility] Chloride 101 98 - 107 mmol/L 07/01/2024 6:42 AM [facility] Carbon Dioxide (CO2) 26 22 - 29 mmol/L 07/01/2024 6:42 AM [facility] Anion Gap 11 7 - 15 mmol/L 07/01/2024 6:42 AM [facility] Urea Nitrogen 22.3 8.0 - 23.0 mg/dL 07/01/2024 6:42 AM [facility] Creatinine 0.91 0.67 - 1.17 mg/dL 07/01/2024 6:42 AM SENIOR CONTROL SYSTEMS ENGINEER [facility] GFR Estimate 90 >60 mL/min/1.7 3m2 07/01/2024 6:42 AM SENIOR CONTROL SYSTEMS ENGINEER [facility] Comment:eGFR calculated 2020 CKD-EPI equation. Calcium 8.8 8.8 - 10.4 mg/dL 07/01/2024 6:42 AM SENIOR CONTROL SYSTEMS ENGINEER [facility] Glucose 99 70 - 99 mg/dL 07/01/2024 6:42 AM SENIOR CONTROL SYSTEMS ENGINEER [facility] Blood BLOOD SPECIMEN / Unknown Venipuncture / Unknown 07/01/2024 5:59 AM SENIOR CONTROL SYSTEMS ENGINEER 07/01/2024 6:07 AM SENIOR CONTROL SYSTEMS ENGINEER Ector Chambers MD LAB - BLOOD ORDER ÓSCAR Final Result LABORATORY [facility] [address] Lab (1st floor, no room number) [place] [address], [facility] from Last 3 Months Additional Health Concerns Active Problems Noted Date Diagnosed Date MyC ECC SURG ENROLL 03/23/2023 Insurance [facility] [address] [facility] [address] Care Teams Mainframe Analyst Relationship Specialty Start Date End Date Cecil Mercado MD [facility] [address] [place] [address] PCP - General Family Medicine 03/28/23
--- OUTSIDE RECORDS SUMMARY | 2024-07-26 02:39 | XMS_ITS | Encounter Summary ---
Author Organization [facility] Address [address] [place] [address] Care Team Providers Care Paperhanger And Painter Name Role Phone Cecil Mercado MD Primary Care Provider [phone] [phone] Encounter Details Date Type Department Care Team (Latest Contact Info) Description 07/01/2024 Travel Social History Tobacco Use Types Packs/Day Years [...] on file Legal Sex Male 3:27 AM HEAD OF MARKETING ANALYTICS Gender Identity Not on file Sexual Orientation Not on file documented as of this encounter Plan of Treatment Not on file documented as of this encounter Goals Goal Patient Goal Type Associated Problems Recent Progress Patient-Stated? Author MYC ECC SURG ENROLL Care Plan MyC ECC SURG ENROLL No Fabby Willard documented as of this encounter Visit Diagnoses Not on filedocumented in this encounter Additional Health Concerns Active Problems Noted Date Diagnosed Date MyC ECC SURG ENROLL 03/23/2023 documented as of this encounter Care Teams Paperhanger And Painter Relationship Specialty Start Date End Date Cecil Mercado MD [facility] [address] [place] [address] PCP - General Family Medicine 03/28/23 documented as of this encounter
[2024-07-26 02:58] LABS: Troponin, Point-of-Care* 0.14 ng/ml (0.01-0.04)
--- NOTE | 2024-07-26 03:06 | CRLHL7_ITS ---
For Patients: As a result of the Century Cures Act, medical imaging exams and procedure reports are released immediately into your electronic medical record. You may view this report before your referring provider. If you have questions, please contact your health care provider. INDICATION: Coughing/wheezing. TECHNIQUE: Chest 2 views. COMPARISON: None. FINDINGS: Cardiovascular and mediastinum: Heart size is normal. Unremarkable mediastinum. Lungs and pleural spaces: Mild left basilar atelectasis. No definite acute infiltrate. No sign of pleural effusion. No pneumothorax. Bones and soft tissues: No significant findings. IMPRESSION: No definite acute findings. Dictated by Sawyer Man MD @ 07/26/2024 3:25:25 AM (Electronically Signed)
[2024-07-26 03:12] LABS: Basophils Absolute Auto 0.02 K/uL (0.00-0.30); Basophils Percent Auto 0.3 % (0.0-3.0); Eosinophils Absolute Auto 0.26 K/uL (0.00-0.50); Eosinophils Percent Auto 3.3 % (0.0-7.0); Hematocrit 49.3 % (37.0-53.0); Hemoglobin* 16.5 gm/dL (13.5-17.5); Immature Granulocytes Pct Auto 1.3 %; Lymphocytes Absolute Auto 1.71 K/uL (0.90-2.90); Lymphocytes Percent Auto 21.7 % (20-44); Mean Corpuscular HGB Conc 34 gm/dL (32-36); Mean Corpuscular Hemoglobin 31 pg (26-34); Mean Corpuscular Volume 92 fL (80-100); Monocytes Percent Auto 11.7 % (0.0-11.0); Neutrophils Absolute Auto 4.86 K/uL (1.7-7.0); Neutrophils Percent Auto 61.7 % (42.0-72.0); Platelet Count* 230 K/uL (140-440); RDW Coefficient of Variation % 13.2 % (11.5-15.5); Red Blood Count 5.34 m/uL (4.30-5.90); White Blood Count* 7.87 K/uL (4.50-11.00)
[2024-07-26 03:14] LABS: Slide Review Reflex No
[2024-07-26 03:18] LABS: Anion Gap 10 mEq/L (7-15); Blood Urea Nitrogen* 22 mg/dL (7-30); Calcium* 9.3 mg/dL (8.4-10.6); Carbon Dioxide* 25 mmol/L (20-32); Creatinine* 0.9 mg/dL (0.5-1.5); Est. Creatinine Clearance* 77.63; Estimated Glomerular Filt Rate 91 ml/min; Glucose* 115 mg/dL (60-115)
--- OUTSIDE RECORDS SUMMARY | 2024-07-26 03:20 | XMS_ITS | Clinical Summary ---
Author Organization [facility] Address [address] [place] [address] Care Team Providers Care Longwall Headgate Operator Name Role Phone Cecil Mercado MD Primary Care Provider [phone] Allergies Active Allergy Reactions Criticality Noted Date [...] Department Care Team Description 07/01/2024 5:39 AM DYNAMICS AX CONSULTANT - 07/01/2024 6:32 PM Formerly [facility] Dept [address] [place] [address] Suraj Cantrell MD Acute post-operative pain Discharge [...] on file Legal Sex Male 3:27 AM DYNAMICS AX CONSULTANT Gender Identity Not on file Sexual Orientation Not on file Last Filed Vital Signs Vital Sign Reading Time Taken Comments Blood Pressure 150/93 07/01/2024 5:59 PM DYNAMICS AX CONSULTANT Pulse 68 07/01/2024 5:59 PM DYNAMICS AX CONSULTANT Temperature 36.5 C (97.7 F) 07/01/2024 5:38 AM DYNAMICS AX CONSULTANT Respiratory Rate 18 07/01/2024 5:59 PM DYNAMICS AX CONSULTANT Oxygen Saturation 94% 07/01/2024 5:59 PM DYNAMICS AX CONSULTANT Inhaled Oxygen Concentration - - Weight 123.8 kg (273 lb) 07/01/2024 5:38 AM DYNAMICS AX CONSULTANT Height 188 cm (6' 2) 07/01/2024 5:38 AM DYNAMICS AX CONSULTANT Body Mass Index 35.05 07/01/2024 5:38 AM DYNAMICS AX CONSULTANT Plan of Treatment Health Maintenance Due Date [...] & W CONTRAST STAT 07/01/2024 11:46 AM DYNAMICS AX CONSULTANT XR LUMBAR SPINE 2/3 VIEWS STAT 07/01/2024 7:53 AM DYNAMICS AX CONSULTANT CBC WITH PLATELETS & DIFFERENTIAL STAT 07/01/2024 5:59 AM DYNAMICS AX CONSULTANT EXTRA RED TOP TUBE STAT 07/01/2024 5: 59 AM DYNAMICS AX CONSULTANT EXTRA BLUE TOP TUBE STAT 07/01/2024 5 :59 AM DYNAMICS AX CONSULTANT CBC WITH PLATELETS AND DIFFERENTIAL STAT 07/01/2024 5:59 AM DYNAMICS AX CONSULTANT EXTRA TUBE STAT 07/01/2024 5:59 AM DYNAMICS AX CONSULTANT ERYTHROCYTE SEDIMENTATION RATE AUTO STAT 07/01/2024 5:59 AM DYNAMICS AX CONSULTANT CRP INFLAMMATION STAT 07/01/2024 5:59 AM DYNAMICS AX CONSULTANT BASIC METABOLIC PANEL STAT 07/01/2024 5:59 AM DYNAMICS AX CONSULTANT from Last 3 Months Results * Lumbar spine MRI w & w/o contrast - surgery <10yrs (07/01/2024 11:46 AM DYNAMICS AX CONSULTANT) Anatomical Region Laterality Modality Spine, SUBRAD MR NEURO, UMP MR SPINE, RAD MR Magnetic Resonance 07/01/2024 11:4 6 AM DYNAMICS AX CONSULTANT Impressions 07/01/2024 12:10 PM DYNAMICS AX CONSULTANT IMPRESSION: 1. There are extensive postsurgical changes at L3-4 with postoperative findings at this level. There are some blood products and fluid in the dorsal epidural space relative to the recent operative intervention as well as paraspinal muscular edema from prior operative intervention as well. Narrative 07/01/2024 12:10 PM DYNAMICS AX CONSULTANT EXAM: MR LUMBAR SPINE W/O and W CONTRAST LOCATION: [facility] DATE: 07/01/2024 INDICATION: post op back pain [...] fluid in the dorsal epidural space likely inbound call center representative of seroma and some postoperative blood [...] LUMBAR SPINE W/O and W CONTRAST LOCATION: [facility] DATE: 07/01/2024 INDICATION: post op back pain [...] postsurgical fluid in the dorsalepidural space likely inbound call center representative of seroma and some postoperativeblood products [...] spine XR, 2-3 views (07/01/2024 7:53 AM DYNAMICS AX CONSULTANT) Anatomical Region Laterality Modality Spine, T-spine, L-spine, Abdomen/Pelvis Digital Radiography 07/01/2024 7:53 AM DYNAMICS AX CONSULTANT Impressions 07/01/2024 8:10 AM DYNAMICS AX CONSULTANT IMPRESSION: Five lumbar segments. Postoperative changes of [...] change from 06/29/2024. Narrative 07/01/2024 8:10 AM DYNAMICS AX CONSULTANT EXAM: XR LUMBAR SPINE 2/3 VIEWS LOCATION: [facility] DATE: 07/01/2024 INDICATION: Postop back pain. COMPARISON: 06/29/2024 plain film imaging. Procedure Note Jordan Calderón MD - 07/01/2024 EXAM: XR LUMBAR SPINE 2/3 VIEWS LOCATION: [facility] DATE: 07/01/2024 INDICATION: Postop back pain. COMPARISON: [...] Extra Red Top Tube (07/01/2024 5:59 AM DYNAMICS AX CONSULTANT) Pathologist [facility] Hold Specimen [facility] 07/01/2024 7:17 AM DYNAMICS AX CONSULTANT LABORATORY Blood BLOOD SPECIMEN / Unknown Venipuncture / Unknown 07/01/2024 5:59 AM DYNAMICS AX CONSULTANT 07/01/2024 6:07 AM DYNAMICS AX CONSULTANT us Suraj Cantrell MD LAB - BLOOD ORDERABLES Final Result [facility]AT[facility] [address] Lab (1st floor, no room number) [place] [phone] [place] [address] * Extra Blue Top Tube (07/01/2024 5:59 AM DYNAMICS AX CONSULTANT) Hold Specimen [facility] 07/01/2024 7:17 AM DYNAMICS AX CONSULTANT LABORATORY Blood BLOOD SPECIMEN / Unknown Venipuncture / Unknown 07/01/2024 5:59 AM DYNAMICS AX CONSULTANT 07/01/2024 6:07 AM DYNAMICS AX CONSULTANT us Suraj Cantrell MD LAB - BLOOD ORDERABLES Final Result LABORATORY [facility] [address] Lab (1st floor, no room number) [place] [phone] * (ABNORMAL) CBC with platelets and differential (07/01/2024 5:59 AM DYNAMICS AX CONSULTANT) WBC Count 8.7 4.0 - 11.0 10e3/uL 07/01/2024 6:14 AM DYNAMICS AX CONSULTANT [facility] RBC Count 4.67 4.40 - 5.90 10e6/uL 07/01/2024 6:14 AM DYNAMICS AX CONSULTANT [facility] Hemoglobin 14.6 13.3 - 17.7 g/dL 07/01/2024 6:14 AM DYNAMICS AX CONSULTANT [facility] Hematocrit 42.6 40.0 - 53.0 % 07/01/2024 6:14 AM DYNAMICS AX CONSULTANT [facility] MCV 91 78 - 100 fL 07/01/2024 6:14 AM DYNAMICS AX CONSULTANT [facility] MCH 31.3 26.5 - 33.0 pg 07/01/2024 6:14 AM DYNAMICS AX CONSULTANT [facility] MCHC 34.3 31.5 - 36.5 g/dL 07/01/2024 6:14 AM DYNAMICS AX CONSULTANT [facility] RDW 13.4 10.0 - 15.0 % 07/01/2024 6:14 AM DYNAMICS AX CONSULTANT [facility] Platelet Count 176 150 - 450 10e3/uL 07/01/2024 6:14 AM DYNAMICS AX CONSULTANT [facility] % Neutrophils 64 % 07/01/2024 6:14 AM DYNAMICS AX CONSULTANT [facility] % Lymphocytes 19 % 07/01/2024 6:14 AM DYNAMICS AX CONSULTANT [facility] % Monocytes 17 % 07/01/2024 6:14 AM DYNAMICS AX CONSULTANT [facility] % Eosinophils 0 % 07/01/2024 6:14 AM DYNAMICS AX CONSULTANT [facility] % Basophils 0 % 07/01/2024 6:14 AM DYNAMICS AX CONSULTANT [facility] % Immature Granulocytes 1 % 07/01/2024 6:14 AM DYNAMICS AX CONSULTANT [facility] NRBCs per 100 WBC 0 <1 /100 025 6:14 AM DYNAMICS AX CONSULTANT [facility] Absolute Neutrophils 5.5 1.6 - 8.3 10e3/uL 07/01/2024 6:14 AM DYNAMICS AX CONSULTANT [facility] Absolute Lymphocytes 1.6 0.8 - 5.3 10e3/uL 07/01/2024 6:14 AM DYNAMICS AX CONSULTANT [facility] Absolute Monocytes 1.4(H) 0.0 - 1.3 10e3/uL 07/01/2024 6:14 AM DYNAMICS AX CONSULTANT [facility] Absolute Eosinophils 0.0 0.0 - 0.7 10e3/uL 07/01/2024 6:14 AM DYNAMICS AX CONSULTANT [facility] Absolute Basophils 0.0 0.0 - 0.2 10e3/uL 07/01/2024 6:14 AM DYNAMICS AX CONSULTANT [facility] Absolute Immature Granulocytes 0.0 <=0.4 10e3/uL 07/01/2024 6:14 AM DYNAMICS AX CONSULTANT [facility] Absolute NRBCs 0.0 10e3/uL 07/01/2024 6:14 AM DYNAMICS AX CONSULTANT [facility] Blood BLOOD SPECIMEN / Unknown Venipuncture / Unknown 07/01/2024 5:59 AM DYNAMICS AX CONSULTANT 07/01/2024 6:05 AM DYNAMICS AX CONSULTANT us Ector Chambers MD LAB - BLOOD ORDER ÓSCAR Final Result [facility] [address] [facility], no room number) [place] [address], [facility] * Erythrocyte sedimentation rate auto (07/01/2024 5:59 AM DYNAMICS AX CONSULTANT) Pathologist [facility] Erythrocyte Sedimentation Rate 8 0 - 20 mm/hr 07/01/2024 6:31 AM DYNAMICS AX CONSULTANT [facility] Blood BLOOD SPECIMEN / Unknown Venipuncture / Unknown 07/01/2024 5:59 AM DYNAMICS AX CONSULTANT 07/01/2024 6:05 AM DYNAMICS AX CONSULTANT Ector Chambers MD LAB - BLOOD ORDER ÓSCAR Final Result LABORATORY [facility] [address] Lab (1st floor, no room number) [place] [phone] [place] [address] * (ABNORMAL) CRP inflammation (07/01/2024 5:59 AM DYNAMICS AX CONSULTANT) Pathologist [facility] CRP Inflammation 68.02(H) <5.00 mg/L 07/01/2024 6:42 AM [facility] Blood BLOOD SPECIMEN / Unknown Venipuncture / Unknown 07/01/2024 5:59 AM DYNAMICS AX CONSULTANT 07/01/2024 6:07 AM DYNAMICS AX CONSULTANT Ector Chambers MD LAB - BLOOD ORDER ÓSCAR Final Result [facility] [address] Lab (1st floor, no room number) [address] * Basic metabolic panel (07/01/2024 5:59 AM DYNAMICS AX CONSULTANT) Pathologist [facility] Sodium 138 135 - 145 mmol/L 07/01/2024 6:42 AM [facility] Potassium 3.9 3.4 - 5.3 mmol/L 07/01/2024 6:42 AM [facility] Chloride 101 98 - 107 mmol/L 07/01/2024 6:42 AM [facility] Carbon Dioxide (CO2) 26 22 - 29 mmol/L 07/01/2024 6:42 AM [facility] Anion Gap 11 7 - 15 mmol/L 07/01/2024 6:42 AM [facility] Urea Nitrogen 22.3 8.0 - 23.0 mg/dL 07/01/2024 6:42 AM [facility] Creatinine 0.91 0.67 - 1.17 mg/dL 07/01/2024 6:42 AM DYNAMICS AX CONSULTANT [facility] GFR Estimate 90 >60 mL/min/1.7 3m2 07/01/2024 6:42 AM DYNAMICS AX CONSULTANT [facility] Comment:eGFR calculated 2020 CKD-EPI equation. Calcium 8.8 8.8 - 10.4 mg/dL 07/01/2024 6:42 AM DYNAMICS AX CONSULTANT [facility] Glucose 99 70 - 99 mg/dL 07/01/2024 6:42 AM DYNAMICS AX CONSULTANT [facility] Blood BLOOD SPECIMEN / Unknown Venipuncture / Unknown 07/01/2024 5:59 AM DYNAMICS AX CONSULTANT 07/01/2024 6:07 AM DYNAMICS AX CONSULTANT Ector Chambers MD LAB - BLOOD ORDER ÓSCAR Final Result LABORATORY [facility] [address] Lab (1st floor, no room number) [place] [address], [facility] from Last 3 Months Additional Health Concerns Active Problems Noted Date Diagnosed Date 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
--- OUTSIDE RECORDS SUMMARY | 2024-07-26 03:20 | XMS_ITS | Encounter Summary ---
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
--- OUTSIDE RECORDS SUMMARY | 2024-07-26 03:20 | XMS_ITS | Clinical Summary ---
Author Organization [facility] Address [address] [place] [address] Care Team Providers Care Chief Librarian Branch Name Role Phone Ailyn, Marguerite TANISHA Unavailable [phone] Cecil Ge MD Primary Care Provider [...] per actuation) nasal solution (FLONASE) Inhale 1 [place] into affected nostril(s) once daily if needed [...] Constipation. 50 Tablet 06/29/19 25 12:30 PM ASSOCIATE PROFESSOR OF MATHEMATICS 025 Active acetaminophen (TYLENOL EXTRA STRGTH) 500 mg tabletIndications :S/P lumbar fusion Take 2 Tablets (1,000 mg) by mouth every 6 hours. Max acetaminophen dose: 4000mg in 24 hrs. 100 Tablet 06/29/19 25 12:30 PM ASSOCIATE PROFESSOR OF MATHEMATICS 025 Active cyclobenzaprine (FLEXERIL) 5 mg tabletIndications :S/P lumbar fusion Take 1 Tablet (5 mg) by mouth every 8 hours if needed for Muscle Spasm. 20 Tablet 06/29/19 25 12:30 PM ASSOCIATE PROFESSOR OF MATHEMATICS 025 Active methylPREDNISolon e (MEDROL DOSEPAK) 4 mg tabletIndications :Post-op pain Take by mouth as instructed per packaging. 21 Tablet 07/04/19 25 10:27 AM ASSOCIATE PROFESSOR OF MATHEMATICS 025 Active gabapentin (NEURONTIN) 300 mg capsuleIndication s:Post-op pain Take 1 Capsule (300 mg) by mouth three times daily. 90 Capsule 07/04/19 25 10:27 AM ASSOCIATE PROFESSOR OF MATHEMATICS 025 Active HYDROmorphone 2 mg tabletIndications :Post-op pain Take 1-2 Tablets (2-4 mg) by mouth every 6 hours if needed for Pain. 30 Tablet 07/04/19 25 10:27 AM ASSOCIATE PROFESSOR OF MATHEMATICS 025 Active fluticasone (50 mcg per actuation) nasal solution (FLONASE)Indicati ons:Seasonal allergies Inhale 1 [place] into both nostrils once daily. 2 Bottle [...] severe pain.). 30 Tablet 06/29/19 12:30 PM ASSOCIATE PROFESSOR OF MATHEMATICS 025 2024 Discontinued(* IP Discontinued) WalkerIndications :S/P [...] unspecified vessel or lesion type, unspecified whether inaja or transplanted heart 08/23/2022 Routine health maintenance [...] Dec 2014: fasting Cholesterol high, ASCVD Risk Cabinet And Trim Installer: 10 % 10 Year risk after info entered, statin recommended, Patient was going to think about it. May 2016: started Atorvastatin (Lipitor) 20mg. June 2016: leg soreness, so trying off and may try again. July 2018: ASCVD Risk Cabinet And Trim Installer: 15 % 10 Year risk after info [...] Department Care Team Description 07/25/2024 Nurse Triage [facility] [id number] [place] [address] Cecil Ge MD Dizzy 07/06/2024 1:20 PM ASSOCIATE PROFESSOR OF MATHEMATICS Office Visit [address] [address] Cecil Ge MD Hospital F/U 07/06/2024 Patient Outreach [facility] Care Management - Advanced Care Team [address] [place] [address] Sera Townsend, BRANCH CHIEF Complex Care Management (Complex Care Engagement) 07/06/2024 Travel 07/04/2024 Travel 07/04/2024 Patient Outreach [facility] Care Management - Care Management Navigation/[facility] [address] [place] [address] Marry Akers Care Management Intake (Payer Referral) 07/04/2024 Patient Outreach [address] [address] Demetrice Sorensen, RN Primary RN Care Management (LACE:30); Hospital F/U (Post op pain DOD:07/03/24) 07/02/2024 Patient Outreach [address] [address] Caryl Baldwin, RN Primary RN Care Management; Hospital F/U (DOD 06/30/2024, Spinal stenosis of lumbar region, LACE+30) 07/01/2024 6:48 PM ASSOCIATE PROFESSOR OF MATHEMATICS - 07/03/2024 12:00 PM ASSOCIATE PROFESSOR OF MATHEMATICS Hospital Encounter [address] [address] s, U Hospitalist Kaykay Solis DO Islyamova, Lyudmila, MD Carlson, Bayard Chandler, MD Post-op pain (Primary Dx) Discharge Disposition: Home Self Care 07/01/2024 Travel 06/28/2024 7:29 AM ASSOCIATE PROFESSOR OF MATHEMATICS Anesthesia Event [address] [address] Shelley Brand MD LabergeMarcelo MD 06/28/2024 7:10 AM ASSOCIATE PROFESSOR OF MATHEMATICS - 06/28/2024 11:54 AM ASSOCIATE PROFESSOR OF MATHEMATICS Surgery [address] [address] Sarah Griffin MD Posterior Spine Fusion with Instrumentation L3-L4, TLIF - Transforaminal Lumbar Interbody Fusion L3-L- Left, Laminectomy with facetectomy/foraminoto my L3-L4 06/28/2024 5:11 AM ASSOCIATE PROFESSOR OF MATHEMATICS - 06/30/2024 2:49 PM ASSOCIATE PROFESSOR OF MATHEMATICS Hospital Encounter [address] [address] Sarah Griffin MD S/P lumbar fusion (Primary Dx) Discharge Disposition: Home Self Care 06/27/2024 Travel 06/11/2024 Orders Only [address] [address] Cecil Ge MD 1 scan: (1-Ord) 06/08/2024 06/08/2024 11:55 AM ASSOCIATE PROFESSOR OF MATHEMATICS Ancillary Procedure [address] [address] 06/08/2024 11:30 AM ASSOCIATE PROFESSOR OF MATHEMATICS Office Visit [address] [address] Cecil Ge MD Pre-Op Exam (DOS:06/28/24, Dr. Griffin, [place]) 06/07/2024 Travel 06/06/2024 Travel from Last 3 Months Immunizations Immunization Administration Dates Next Due COVID-19 vaccine ([employer] 30mcg/0.3mL) PF, MDV 07/26/2020,07/05/2020 Influenza, High-dose Inactivated [...] AM CDT Legal Sex Male 5:24 AM ASSOCIATE PROFESSOR OF MATHEMATICS Gender Identity Male 02/08/2023 10:51 AM CDT Sexual Orientation Straight 02/08/2023 10 :51 AM CDT Obstetrics History Last Filed Vital Signs Vital Sign Reading Time Taken Comments Blood Pressure 120/80 07/06/2024 1:17 PM ASSOCIATE PROFESSOR OF MATHEMATICS Pulse 61 07/06/2024 1:17 PM ASSOCIATE PROFESSOR OF MATHEMATICS Temperature 36.4 C (97.6 F) 07/03/2024 8:33 AM ASSOCIATE PROFESSOR OF MATHEMATICS Respiratory Rate 18 07/03/2024 8:33 AM ASSOCIATE PROFESSOR OF MATHEMATICS Oxygen Saturation 95% 07/06/2024 1:17 PM ASSOCIATE PROFESSOR OF MATHEMATICS Inhaled Oxygen Concentration - - Weight 125.2 kg (276 lb) 07/06/2024 1:17 PM ASSOCIATE PROFESSOR OF MATHEMATICS Height 188 cm (6' 2) 07/06/2024 1:17 PM ASSOCIATE PROFESSOR OF MATHEMATICS Body Mass Index 35.44 07/06/2024 1:17 PM ASSOCIATE PROFESSOR OF MATHEMATICS Plan of Treatment Upcoming Encounters Date Type Department Care Team (Late st Contact Info) Description 08/14/2024 8:30 AM CDT Orders Only [facility] [address] [place] [address] Health Maintenance Due Date Last Done Comments [...] 11/22/2023, 07/07/2023 Medical Devices Implanted Type Area Dress Finisher Device Identifier Shelf Expiration Date Model / Serial / Lot Bone 1-4mm 30cc Medtronic Chips Canclls Freeze Dried - [id number] Implanted:Qty : 1 on 06/28/2024 by Sarah Griffin MD at [facility] Left: Spine Medtronic Spine/Ortho [id number] 01/25/2028 [id number] / [id number] / Set Bone Graft Accelerate Prentiss Dbf 6c - [id number] Implanted:Qty : 1 on 06/28/2024 by Sarah Griffin MD at [facility] Left: Spine Medtronic Spine/Ortho [id number] 10/19/2025 [id number] / [id number] / Putty Easypack 5cc Magnetos - [id number] Implanted:Qty : 1 on 06/28/2024 by Sarah Griffin MD at [facility] l: Spine [employer] 03/02/2029 [id number] / / [id number] Spacer Catalyft 7mm Pl Lng - [id number] Implanted:Qty : 1 on 06/28/2024 by Sarah Griffin MD at [facility] Left: Spine Medtronic Spine/Ortho 04/09/2032 [id number] / / [id number] Putty Easypack 1.5cc Magnetos - [id number] Implanted:Qty : 1 on 06/28/2024 by Sarah Griffin MD at [facility] Left: Spine [employer] 11/30/2028 [id number] / / [id number] Set Screw Lmbr Ant 5.5mm Solera Break Off - [id number] Implanted:Qty : 4 on 06/28/2024 by Sarah Griffin MD at [facility] l: Spine Medtronic Spine/Ortho [id number] / / Screw Lmbr Post 7.5x55mm Solera 5.5/6 Va Cocr - [id number] Implanted:Qty : 2 on 06/28/2024 by Sarah Griffin MD at [facility] l: Spine Medtronic Spine/Ortho [id number] / / Screw Lmbr Post 6.5x55mm Solera 5.5/6 Va Cocr - [id number] Implanted:Qty : 2 on 06/28/2024 by Sarah Griffin MD at [facility] l: Spine Medtronic Spine/Ortho [id number] / / Jerome Lmbr 45x5.5mm Solera 5.5/6 Cvd Titnm - [id number] Implanted:Qty : 1 on 06/28/2024 by Sarah Griffin MD at [facility] l: Spine Medtronic Spine/Ortho [id number] / / Procedures Procedure Name Priority Date/Time Associated Diagnosis Comments CT SPINE LUMBAR WO LUCIANO 07/02/2024 12:18 PM ASSOCIATE PROFESSOR OF MATHEMATICS HEMOGLOBIN Early AM 06/30/2024 6:19 AM ASSOCIATE PROFESSOR OF MATHEMATICS XR SPINE LUMBAR 2 VIEWS Routine 06/29/2024 10:09 AM ASSOCIATE PROFESSOR OF MATHEMATICS HEMOGLOBIN Early AM 06/29/2024 6:33 AM ASSOCIATE PROFESSOR OF MATHEMATICS XR C-ARM GREATER 1 HR Routine 06/28/2024 10:43 AM ASSOCIATE PROFESSOR OF MATHEMATICS XR O-ARM FLUORO 31-120 MINUTES Routine 06/28/2024 9:03 AM ASSOCIATE PROFESSOR OF MATHEMATICS ENDOTRACHEAL TUBE Routine 06/28/2024 8:25 AM ASSOCIATE PROFESSOR OF MATHEMATICS ENDOTRACHEAL TUBE Routine 06/28/2024 8:25 AM ASSOCIATE PROFESSOR OF MATHEMATICS ENDOTRACHEAL TUBE Routine 06/28/2024 8:25 AM ASSOCIATE PROFESSOR OF MATHEMATICS XR SPINE 1 VIEW PORTABLE Routine 06/28/2024 8:17 AM ASSOCIATE PROFESSOR OF MATHEMATICS XR SPINE 1 VIEW PORTABLE Routine 06/28/2024 8:17 AM ASSOCIATE PROFESSOR OF MATHEMATICS POSTERIOR LUMBAR SPINE FUSION LEVEL 1 WITH STEALTH Tier 4 06/28/2024 7:09 AM ASSOCIATE PROFESSOR OF MATHEMATICS 1) Spondylolisthesis, Lumbar M43.16 2) Stenosis, Lumbar - w/Neurogenic Claudication M48.062 Case Notes 0730 180 MIN O Arm AND Stealth - TRANSONE (ABBY) CONFIRMED FOR 0730 TT 04/12Cell Saver CONFIRMED WITH SUE @30 # [id number] TT 04/12Axis Table Insert Russell CatheterSolera 5.5/6.0 - Confirmed with Perez Hdez ([phone]) BD 06/26Solera [id number] Accellerate Special Needs 6' 1.5, 125.7 kg, BMI 36.06 TYPE & SCREEN Preop 06/28/2024 6:25 AM ASSOCIATE PROFESSOR OF MATHEMATICS GLUCOSE, FASTING Preop 06/28/2024 6:25 AM ASSOCIATE PROFESSOR OF MATHEMATICS HEMOGLOBIN Preop 06/28/2024 6:25 AM ASSOCIATE PROFESSOR OF MATHEMATICS SCAN-CARDIAC STRIP 06/28/2024 12:00 AM ASSOCIATE PROFESSOR OF MATHEMATICS SCAN-OPERATIVE/PRO CEDURE REPORT 06/28/2024 12:00 AM ASSOCIATE PROFESSOR OF MATHEMATICS CBC WITH AUTO DIFFERENTIAL Routine 06/08/2024 12:20 PM ASSOCIATE PROFESSOR OF MATHEMATICS Pre-op exam BASIC METABOLIC PANEL Routine 06/08/2024 12:20 PM ASSOCIATE PROFESSOR OF MATHEMATICS Pre-op exam PSA TOTAL Routine 06/08/2024 12:20 PM ASSOCIATE PROFESSOR OF MATHEMATICS Special screening for malignant neoplasm of prostate VITAMIN D 25 (DEFICIENCY) Routine 06/08/2024 12:20 PM ASSOCIATE PROFESSOR OF MATHEMATICS Vitamin D deficiency LIPID PANEL Routine 06/08/2024 12:20 PM ASSOCIATE PROFESSOR OF MATHEMATICS Mixed hyperlipidemia PROTIME-INR Routine 06/08/2024 12:18 PM ASSOCIATE PROFESSOR OF MATHEMATICS Pre-op exam XR CHEST 2 VIEWS PA AND LATERAL Routine 06/08/2024 12:00 PM ASSOCIATE PROFESSOR OF MATHEMATICS Pre-op exam EKG 12 LEAD Routine 06/08/2024 12:00 AM ASSOCIATE PROFESSOR OF MATHEMATICS Pre-op exam COLONOSCOPY SCREENING Routine 03/09/2022 10:22 AM ASSOCIATE PROFESSOR OF MATHEMATICS History of colon polyps ANTI HCV Routine 04/09/2016 9:15 AM ASSOCIATE PROFESSOR OF MATHEMATICS Need for hepatitis C screening test from Last 3 Months or Most Recently Relevant to Health Maintenance Results * CT SPINE LUMBAR WO (07/02/2024 12:18 PM ASSOCIATE PROFESSOR OF MATHEMATICS) Anatomical Region Laterality Modality LUMBAR SPINE, Spine, Spine Compu nava Tomography 07/02/2024 12:1 8 PM ASSOCIATE PROFESSOR OF MATHEMATICS Impressions 07/02/2024 12:40 PM ASSOCIATE PROFESSOR OF MATHEMATICS 1. No instrumentation loosening or failure. 2. No high grade spinal canal or neural foraminal stenosis. Narrative 07/02/2024 12:40 PM ASSOCIATE PROFESSOR OF MATHEMATICS For Patients: As a result of the Cures Act, medical imaging exams and procedure reports are released immediately into your electronic medical record. You may view this report before your referring provider. If you have questions, please contact your health care provider. EXAM: CT SPINE LUMBAR WO LOCATION: [facility] DATE: 07/02/2024 INDICATION: Lumbar radiculopathy, [...] provider. EXAM: CT SPINE LUMBAR WO LOCATION: [facility] DATE: 07/02/2024 INDICATION: Lumbar radiculopathy, [...] Hemoglobin - In AM (06/30/2024 6:19 AM ASSOCIATE PROFESSOR OF MATHEMATICS) Only the most recent of3 resultswithin the time period is included. HEMOGLOBIN 14.6 13.5 - 17.5 g/dL 06/30/2024 6:51 AM [facility] MCV 92 80 - 100 fL 06/30/2024 6:51 AM [facility] Blood BLOOD SPECIMEN / Unknown Venipuncture / Unknown 06/30/2024 6:19 AM ASSOCIATE PROFESSOR OF MATHEMATICS 06/30/2024 6:46 AM [facility] - 06/30/2024 6:51 AM ASSOCIATE PROFESSOR OF MATHEMATICS Call surgeon if Hemoglobin is less than 9. us Ramu APTE HEMATOLOGY Leeanna l Result [facility] SENDOUT INTERNAL ZIP [phone] [place] [address] * XR SPINE LUMBAR 2 VIEWS (06/29/2024 10:09 AM ASSOCIATE PROFESSOR OF MATHEMATICS) Anatomical Region Laterality Modality LUMBAR SPINE Computed Radiogr aphy 06/29/2024 10:0 9 AM ASSOCIATE PROFESSOR OF MATHEMATICS Impressions 06/29/2024 11:05 AM ASSOCIATE PROFESSOR OF MATHEMATICS New postoperative changes with posterior jerome and screw fixation hardware and intervertebral disc spacer at L3-L4. Metal hardware appears intact on these images. Persistent mild grade 1 retrolisthesis of L2 on L3. No new loss of vertebral body height. Marked degenerative endplate changes and loss of disc height at L1-2, L2-3, and L5-S1. Narrative 06/29/2024 11:05 AM ASSOCIATE PROFESSOR OF MATHEMATICS For Patients: As a result of the Cures Act, medical imaging exams and procedure reports are released immediately into your electronic medical record. You may view this report before your referring provider. If you have questions, please contact your health care provider. EXAM: XR SPINE LUMBAR 2 VIEWS LOCATION: [facility] DATE: 06/29/2024 INDICATION: Postop evaluation. [...] EXAM: XR SPINE LUMBAR 2 VIEWS LOCATION: [facility] DATE: 06/29/2024 INDICATION: Postop evaluation. [...] C-ARM GREATER 1 HR (06/28/2024 10:43 AM ASSOCIATE PROFESSOR OF MATHEMATICS) Anatomical Region Laterality Modality Computed Radiogr aphy 06/28/2024 10:4 3 AM ASSOCIATE PROFESSOR OF MATHEMATICS Narrative 06/28/2024 11:22 AM ASSOCIATE PROFESSOR OF MATHEMATICS For Patients: As a result of the Cures Act, medical imaging exams and procedure reports are released immediately into your electronic medical record. You may view this report before your referring provider. If you have questions, please contact your health care provider. EXAM: XR C-ARM GREATER 1 HR LOCATION: [facility] DATE: 06/28/2024 INDICATION: free text)->Intraoperative [...] EXAM: XR C-ARM GREATER 1 HR LOCATION: [facility] DATE: 06/28/2024 INDICATION: free text)->Intraoperative COMPARISON: None. TECHNIQUE: Intraoperative fluoroscopy performed during the patient'sprocedure. RADIATION DOSE: GILBERTO 7.83 mGy FINDINGS: 3 intraoperative fluoroscopic views of the lumbar spine forintraprocedural localization. Sarah Griffin MD FLUOROSCOPY Final Result * XR O-ARM FLUORO 31-120 MINUTES (06/28/2024 9:03 AM ASSOCIATE PROFESSOR OF MATHEMATICS) Anatomical Region Laterality Modality Computed Radiogr aphy 06/28/2024 9:03 AM ASSOCIATE PROFESSOR OF MATHEMATICS Impressions 06/28/2024 10:22 AM ASSOCIATE PROFESSOR OF MATHEMATICS Single crosstable view prone portal lumbar spine demonstrates 5 lumbar segments presumed with degenerative changes. Demarcation dorsally of the spinous process at L3. Additional frontal and lateral projection imaging of the lower lumbar spine with 192 image data set axially acquired of the lumbar spine also submitted. Correlate with real-time imaging/procedural changes. Narrative 06/28/2024 10:22 AM ASSOCIATE PROFESSOR OF MATHEMATICS For Patients: As a result of the Cures Act, medical imaging exams and procedure reports are released immediately into your electronic medical record. You may view this report before your referring provider. If you have questions, please contact your health care provider. EXAM: XR SPINE 1 VIEW PORTABLE, XR O-ARM FLUORO 31-120 MINUTES LOCATION: [facility] DATE: 06/28/2024 INDICATION: Localization back [...] PORTABLE, XR O-ARM FLUORO 31-120 MINUTES LOCATION: [facility] DATE: 06/28/2024 INDICATION: Localization back [...] PR1, HCHG MOUTHPIECE PR1 (06/28/2024 8:25 AM ASSOCIATE PROFESSOR OF MATHEMATICS) Narrative Joanne Grant CRNA - 06/28/2024 8:25 AM ASSOCIATE PROFESSOR OF MATHEMATICS Joanne Grant CRNA 06/28/2024 8:25 AM Procedure: [...] SPINE 1 VIEW PORTABLE (06/28/2024 8:17 AM ASSOCIATE PROFESSOR OF MATHEMATICS) Only the most recent of2 resultswithin the time period is included. Anatomical Region Laterality Modality Spine, CERVICAL SPINE, THORACIC SPINE, LUMBAR SP INE Computed Radiography 06/28/2024 8:17 AM ASSOCIATE PROFESSOR OF MATHEMATICS Impressions 06/28/2024 10:22 AM ASSOCIATE PROFESSOR OF MATHEMATICS Single crosstable view prone portal lumbar spine demonstrates 5 lumbar segments presumed with degenerative changes. Demarcation dorsally of the spinous process at L3. Additional frontal and lateral projection imaging of the lower lumbar spine with 192 image data set axially acquired of the lumbar spine also submitted. Correlate with real-time imaging/procedural changes. Narrative 06/28/2024 10:22 AM ASSOCIATE PROFESSOR OF MATHEMATICS For Patients: As a result of the Cures Act, medical imaging exams and procedure reports are released immediately into your electronic medical record. You may view this report before your referring provider. If you have questions, please contact your health care provider. EXAM: XR SPINE 1 VIEW PORTABLE, XR O-ARM FLUORO 31-120 MINUTES LOCATION: [facility] DATE: 06/28/2024 INDICATION: Localization back [...] PORTABLE, XR O-ARM FLUORO 31-120 MINUTES LOCATION: [facility] DATE: 06/28/2024 INDICATION: Localization back [...] * Type and Screen (06/28/2024 6:25 AM ASSOCIATE PROFESSOR OF MATHEMATICS) ABORH O Rh Positive 06/28/2024 7:33 AM [facility] BLOOD BANK ANTIBODY SCREEN Negative Negative 06/28/2024 7:33 AM [facility] BLOOD BANK SPECIMEN EXPIRATION DATE/TIME 07/01/24 23:59 06/28/2024 7:33 AM ASSOCIATE PROFESSOR OF MATHEMATICS [facility] BLOOD BANK Blood BLOOD SPECIMEN / Unknown Non-Lab Venipuncture / Unknown 06/28/2024 6:25 AM ASSOCIATE PROFESSOR OF MATHEMATICS 06/28/2024 6:35 AM ASSOCIATE PROFESSOR OF MATHEMATICS Sarah Griffin MD BLOOD BANK Final Result [facility] BLOOD BANK [address] [place] [address] * (ABNORMAL) GLUCOSE, FASTING (06/28/2024 6:25 AM ASSOCIATE PROFESSOR OF MATHEMATICS) GLUCOSE 109(H) 70 - 99 mg/dL 06/28/2024 7:14 AM ASSOCIATE PROFESSOR OF MATHEMATICS [facility] Blood BLOOD SPECIMEN / Unknown Non-Lab Venipuncture / Unknown 06/28/2024 6:25 AM ASSOCIATE PROFESSOR OF MATHEMATICS 06/28/2024 6:35 AM ASSOCIATE PROFESSOR OF MATHEMATICS Sarah Griffin MD CHEMISTRY Final Result [facility] SENDOUT INTERNAL ZIP [id number] [place] [phone] * SCAN-CARDIAC STRIP (06/28/2024 12:00 AM ASSOCIATE PROFESSOR OF MATHEMATICS) Narrative 06/28/2024 12:00 AM ASSOCIATE PROFESSOR OF MATHEMATICS Ordered by an unspecified provider. Other Clinical Staff OTHER Final Resul t * SCAN-OPERATIVE/PROCEDURE REPORT (06/28/2024 12:00 AM ASSOCIATE PROFESSOR OF MATHEMATICS) Narrative 06/28/2024 12:00 AM ASSOCIATE PROFESSOR OF MATHEMATICS Ordered by an unspecified provider. us Other Clinical Staff OTHER Final Resul t * (ABNORMAL) VITAMIN D 25 (DEFICIENCY) (06/08/2024 12:20 PM ASSOCIATE PROFESSOR OF MATHEMATICS) Pathologist [facility] VITAMIN D,25-OH,TOTAL,IA 29(L) 30 - 100 ng/mL [facility] Comment: Vitamin D Status 25-OH Vitamin D: Deficiency: <20 ng/mL Insufficiency: 20 - 29 ng/mL Optimal: > or = 30 ng/mL For 25-OH Vitamin D testing on patients on D2-supplementation and patients for whom quantitation of D2 and D3 fractions is required, the QuestAssureD(TM) 25-OH VIT D, (D2,D3), LC/MS/MS is recommended: order code [id number] (patients >2yrs). See Note 1 Note 1 For additional information, please refer to http://education.3225 films/faq/BLE859 (This link is being provided for informational/ educational purposes only.) Blood BLOOD SPECIMEN / Unknown 06/08/2024 12:20 PM ASSOCIATE PROFESSOR OF MATHEMATICS 06/08/2024 12:22 PM ASSOCIATE PROFESSOR OF MATHEMATICS Narrative [facility] - 06/09/2024 5:08 AM ASSOCIATE PROFESSOR OF MATHEMATICS FASTING:NO FASTING: NO Cecil Ge MD SEND OUTS Final Result [facility] [address] [place] [address], [facility] [address] [place] [address] * CBC AND DIFFERENTIAL (06/08/2024 12:20 PM ASSOCIATE PROFESSOR OF MATHEMATICS) [facility] WHITE BLOOD CELL COUNT 4.7 3.8 - [...] BLOOD SPECIMEN / Unknown 06/08/2024 12:20 PM ASSOCIATE PROFESSOR OF MATHEMATICS 06/08/2024 12:22 PM ASSOCIATE PROFESSOR OF MATHEMATICS Narrative [facility] - 06/09/2024 2:26 AM ASSOCIATE PROFESSOR OF MATHEMATICS FASTING:NO FASTING: NO us Cecil Ge MD HEMATOLOGY Final Result [facility] [address] [place] [address], [facility] [address] [place] [address] * PSA TOTAL (06/08/2024 12:20 PM ASSOCIATE PROFESSOR OF MATHEMATICS) PSA, TOTAL 2.07 < OR = 4.00 ng/mL [facility] Comment: The total PSA value from this assay system is standardized against the WHO standard. The test result will be approximately 20% lower when compared to the equimolar-standardized total PSA (Awa Cardale). Comparison of serial PSA results should be interpreted with this fact in mind. This test was performed using the Siemens chemiluminescent method. Values obtained from different assay methods cannot be used interchangeably. PSA levels, regardless of value, should not be interpreted as absolute evidence of the presence or absence of disease. Blood BLOOD SPECIMEN / Unknown 06/08/2024 12:20 PM ASSOCIATE PROFESSOR OF MATHEMATICS 06/08/2024 12:22 PM ASSOCIATE PROFESSOR OF MATHEMATICS Narrative [facility] - 06/09/2024 5:08 AM ASSOCIATE PROFESSOR OF MATHEMATICS FASTING:NO FASTING: NO Cecil Ge MD CHEMISTRY Final Result Performing Organization Address [facility] Co de Phone Number [facility] [address] [place] [address], [facility] [address] [place] [address] * (ABNORMAL) LIPID PANEL (06/08/2024 12:20 PM ASSOCIATE PROFESSOR OF MATHEMATICS) CHOLESTEROL, TOTAL 223(H) <200 mg/dL [facility] HDL CHOLESTEROL 60 > OR = 40 mg/dL [facility] TRIGLYCERIDES 96 <150 mg/dL [facility] LDL-CHOLESTEROL 143(H) mg/dL (calc) [facility] [...] LDL-C. Rafael PHILLIPS et al. [place]. 2013;310(19): 5907-6181 (http://education.3225 films/faq/PNO165) CHOL/HDLC RATIO 3.7 <5.0 (calc) [facility] NON HDL CHOLESTEROL 163(H) <130 mg/dL (calc) [facility] Comment: For patients with diabetes plus 1 major ASCVD risk factor, treating to a non-HDL-C goal of <100 mg/dL (LDL-C of <70 mg/dL) is considered a therapeutic option. Blood BLOOD SPECIMEN / Unknown 06/08/2024 12:20 PM ASSOCIATE PROFESSOR OF MATHEMATICS 06/08/2024 12:22 PM ASSOCIATE PROFESSOR OF MATHEMATICS Narrative [facility] - 06/09/2024 4:24 AM ASSOCIATE PROFESSOR OF MATHEMATICS FASTING:NO FASTING: NO us Cecil Ge MD CHEMISTRY Final Result [facility] [address] [place] [address], [facility] [address] [place] [address] * (ABNORMAL) BASIC METABOLIC PANEL (06/08/2024 12:20 PM ASSOCIATE PROFESSOR OF MATHEMATICS) Pathologist [facility] GLUCOSE 87 65 - 139 mg/dL [facility] od [facility] Comment: Non-fasting reference interval UREA NITROGEN (BUN) 26(H) 7 - 25 mg/dL [facility] CREATININE 0.97 0.70 - 1.28 mg/dL [facility] EGFR 83 > OR = 60 mL/min/1.7 3m2 [facility] BUN/CREATININE RATIO 27(H) 6 - 22 (calc) [facility] SODIUM 138 135 - 146 mmol/L [facility] POTASSIUM 4.2 3.5 - 5.3 mmol/L [facility] CHLORIDE 103 98 - 110 mmol/L [facility] CARBON DIOXIDE 26 20 - 32 mmol/L [facility] ELECTROLYTE BALANCE 9 7 - 17 mmol/L (calc) [facility] CALCIUM 9.3 8.6 - 10.3 mg/dL [facility] Blood BLOOD SPECIMEN / Unknown 06/08/2024 12:20 PM ASSOCIATE PROFESSOR OF MATHEMATICS 06/08/2024 12:22 PM ASSOCIATE PROFESSOR OF MATHEMATICS Narrative [facility] - 06/09/2024 4:24 AM ASSOCIATE PROFESSOR OF MATHEMATICS FASTING:NO FASTING: NO Cecil Ge MD CHEMISTRY Final Result [facility] [address] [place] [address], [facility] [address] [place] [address] * PROTIME-INR (06/08/2024 12:18 PM ASSOCIATE PROFESSOR OF MATHEMATICS) INR 1.0 <1.3 06/08/2024 10:13 PM ASSOCIATE PROFESSOR OF MATHEMATICS [facility] PROTIME 11.3 10.6 - 12.4 sec 06/08/2024 10:13 PM ASSOCIATE PROFESSOR OF MATHEMATICS [facility] Blood BLOOD SPECIMEN / Unknown [facility] / Unknown 06/08/2024 12:18 PM ASSOCIATE PROFESSOR OF MATHEMATICS 06/08/2024 12:18 PM ASSOCIATE PROFESSOR OF MATHEMATICS Narrative [facility] - 06/08/2024 10:13 PM ASSOCIATE PROFESSOR OF MATHEMATICS Therapeutic Range 2.0-3.0 for most anticoagulated patients [...] UFH. Cecil Ge MD HEMATOLOGY Final Result [facility] [address] [place] [address], [place] * XR CHEST 2 VIEWS PA AND LATERAL (06/08/2024 12:00 PM ASSOCIATE PROFESSOR OF MATHEMATICS) Anatomical Region Laterality Modality CHEST, THORAX, Lung, HEART Compu nava Radiography 06/08/2024 6:08 PM ASSOCIATE PROFESSOR OF MATHEMATICS Impressions 06/08/2024 6:08 PM ASSOCIATE PROFESSOR OF MATHEMATICS 1. No acute cardiopulmonary disease is seen. Dictated by: Clif Waters MD @ 06/08/2024 18:08:10 (Electronically Signed) Narrative 06/08/2024 6:08 PM ASSOCIATE PROFESSOR OF MATHEMATICS For Patients: As a result of the [...] * EKG 12 LEAD (06/08/2024 12:00 AM ASSOCIATE PROFESSOR OF MATHEMATICS) us Cecil Ge MD EKG ORD Final Result * COLONOSCOPY (03/09/2022 10:58 AM ASSOCIATE PROFESSOR OF MATHEMATICS) 03/09/2022 10:5 8 AM ASSOCIATE PROFESSOR OF MATHEMATICS Narrative Transcriptions Rafael Delgado MD - 03/09/2022 [...] adequate candidate for conscious sedation. The endoscope -[id number] was passed through the anus andadvanced to [...] 10:58 AM Procedure Code(s): --- Professional --- 13552, Colonoscopy, flexible; with biopsy, single or multiple Diagnosis Code(s): --- Professional --- Z86.010, Personal history of colonicpolyps D12.0, Benign neoplasm of cecum K57.30, Diverticulosis of large intestine without perforation or abscess withoutbleeding CPT copyright 2020 [employer]. All rights reserved. The codes documented in this report are preliminary and upon stain wiper reviewmay be revised to meet current compliance requirements. Scope In: 11:13:47 AM Scope Withdrawal Time 0 hours 8 minutes 17 seconds Scope Out: 11:28:52 AM us Rafael Delgado MD PROCEDURE ORD Final Res ult * ANTI HCV [93050.2] (04/09/2016 9:15 AM ASSOCIATE PROFESSOR OF MATHEMATICS) HEPATITIS C ANTIBODY Non-Reacti ve Non-Reacti ve 04/09/2016 4:26 PM ASSOCIATE PROFESSOR OF MATHEMATICS [facility] Blood BLOOD SPECIMEN / Unknown Venipuncture / Unknown 04/09/2016 9:15 AM ASSOCIATE PROFESSOR OF MATHEMATICS 04/09/2016 9:16 AM ASSOCIATE PROFESSOR OF MATHEMATICS Narrative [facility] - 04/09/2016 4:26 PM ASSOCIATE PROFESSOR OF MATHEMATICS Antibodies to HCV not detected; does not exclude the possibility of exposure to HCV. us Campos Araujo MD SEND OUTS Final Res ult [facility] [address] [place] [address], from Last 3 Months or Most Recently Relevant to Health Maintenance Insurance [facility] MEDICARE ADVANTAGE MR MEDICARE PART A HB ONLY Advance Directives * Full Code (Latest Code Status on File) Date Activated Date Inactivated Comments 07/01/2024 7:07 PM 07/03/2024 2:10 PM Question Answer Comments Code Status Discussion: Reviewed Preferences * Full Code Date Activated Date Inactivated Comments 06/28/2024 7:27 AM 06/30/2024 4:54 PM Question Answer Comments Code Status Discussion: Reviewed Preferences Care Teams Chief Librarian Branch Relationship Specialty [place] [address] [place] [address] PCP - General Family Practice 04/20/22 Marguerite Robertson MBBS [address] [place] [address] Cardiology Cardiovascular Disease 07/04/20
--- OUTSIDE RECORDS SUMMARY | 2024-07-26 03:20 | XMS_ITS | Encounter Summary ---
Author Organization [facility] Address [address] [place] [address] Care Team Providers Care Cooler Deliverer Name Role Phone Cecil Mercado MD Primary Care Provider [phone] Reason for Visit * Reason Comments Post-op Problem Encounter Details Date Type Department Care Team (Late st Contact Info) Description 07/01/2024 5:39 AM LINER REROLL TENDER - 07/01/2024 6:32 PM LINER REROLL TENDER Emergency [facility] Emergency Dept [address] [place] [address] Suraj Cantrell MD EMERGENCY PHYSICIAN PA [address] [place], [place] [id number] Acute post-operative pain Discharge Disposition: Short Term [...] on file Legal Sex Male 3:27 AM LINER REROLL TENDER Gender Identity Not on file Sexual Orientation Not on file documented as of this encounter Last Filed Vital Signs Vital Sign Reading Time Taken Comments Blood Pressure 150/93 07/01/2024 5:59 PM LINER REROLL TENDER Pulse 68 07/01/2024 5:59 PM LINER REROLL TENDER Temperature 36.5 C (97.7 F) 07/01/2024 5:38 AM LINER REROLL TENDER Respiratory Rate 18 07/01/2024 5:59 PM LINER REROLL TENDER Oxygen Saturation 94% 07/01/2024 5:59 PM LINER REROLL TENDER Inhaled Oxygen Concentration - - Weight 123.8 kg (273 lb) 07/01/2024 5:38 AM LINER REROLL TENDER Height 188 cm (6' 2) 07/01/2024 5:38 AM LINER REROLL TENDER Body Mass Index 35.05 07/01/2024 5:38 AM LINER REROLL TENDER documented in this encounter Medications at Time [...] cot with assist of 5, tolerated well. R REROLL TENDER * Quinton Manzanares RN - 07/01/2024 2:35 PM CST Pt turned on side. Placed pillow with ice bag on back and pillow between legs. R REROLL TENDER * Quinton Manzanares RN - 07/01/2024 12:00 [...] relax his body. Pt continues on 2LNC R REROLL TENDER * Suraj Cantrell MD - 07/01/2024 7:13 [...] noted above. [address] Dimitris Granados. 0722 I rechecked and updated the patient. 1155 I rechecked and updated the patient. [address] Wing Additional Documentation None Medical Decision Making / Diagnosis [facility] Diagnoses: None MIPS None [facility] Raj Hager is a 74 year old [...] I discussed with the on-call surgeon from [facility] spine and reviewed the case with him. [...] Dr. Wing, who accepts the transfer to [facility]. Disposition The patient was transferred to [facility] via EMS. Dr. Wing accepted the patient for transfer. Diagnosis ICD-10-CM 1. Acute post-operative pain G89.18 Discharge Medications New Prescriptions No medications on file Scribe Disclosure: I, Mirtha Alvarez, am serving as a scribe at 7:30 AM on 07/01/2024 to document services personally performed by Suraj Cantrell MD based on my observations and the provider's statements to me. Suraj Cantrell MD 07/01/24 1325 R REROLL TENDER * Lovely Stapleton RN - 07/01/2024 5:35 AM CST Pt had a lumbar fusion on 06/28 and went home 06/29. Pt reports pain in his right thigh that started on his way home from the hospital. Pt reports he did have pain in the leg while in the hospital, butincreased on his way home. R REROLL TENDER documented in this encounter Miscellaneous Notes * [...] dose this coming Tuesday. Changes made to [facility] medication list: Added: Ventolin, flexeril, duoneb, oxycodone Deleted: None Changed: None Allergies reviewed with patient and updates made in EHR: yes Medication History Completed By: Bianka Wilson RPH 07/01/2024 2:40 PM [facility] Med List Medication Sig Last Dose/Taking acetaminophen [...] as needed for severe pain. 07/01/2024 Morning R REROLL TENDER documented in this encounter Plan of Treatment [...] & W CONTRAST STAT 07/01/2024 11:46 AM LINER REROLL TENDER XR LUMBAR SPINE 2/3 VIEWS STAT 07/01/2024 7:53 AM LINER REROLL TENDER EXTRA TUBE STAT 07/01/2024 5:59 AM LINER REROLL TENDER EXTRA RED TOP TUBE STAT 07/01/2024 5: 59 AM LINER REROLL TENDER EXTRA BLUE TOP TUBE STAT 07/01/2024 5 :59 AM LINER REROLL TENDER CBC WITH PLATELETS AND DIFFERENTIAL STAT 07/01/2024 5:59 AM LINER REROLL TENDER CBC WITH PLATELETS & DIFFERENTIAL STAT 07/01/2024 5:59 AM LINER REROLL TENDER ERYTHROCYTE SEDIMENTATION RATE AUTO STAT 07/01/2024 5:59 AM LINER REROLL TENDER CRP INFLAMMATION STAT 07/01/2024 5:59 AM LINER REROLL TENDER BASIC METABOLIC PANEL STAT 07/01/2024 5:59 AM LINER REROLL TENDER documented in this encounter Results * Lumbar spine MRI w & w/o contrast - surgery <10yrs (07/01/2024 11:46 AM LINER REROLL TENDER) Anatomical Region Laterality Modality Spine, SUBRAD MR NEURO, UMP MR SPINE, RAD MR Magnetic Resonance 07/01/2024 11:4 6 AM LINER REROLL TENDER Impressions 07/01/2024 12:10 PM LINER REROLL TENDER IMPRESSION: 1. There are extensive postsurgical changes at L3-4 with postoperative findings at this level. There are some blood products and fluid in the dorsal epidural space relative to the recent operative intervention as well as paraspinal muscular edema from prior operative intervention as well. Narrative 07/01/2024 12:10 PM LINER REROLL TENDER EXAM: MR LUMBAR SPINE W/O and W CONTRAST LOCATION: [facility] DATE: 07/01/2024 INDICATION: post op back pain [...] fluid in the dorsal epidural space likely digital media representative of seroma and some postoperative blood [...] LUMBAR SPINE W/O and W CONTRAST LOCATION: [facility] DATE: 07/01/2024 INDICATION: post op back pain [...] postsurgical fluid in the dorsalepidural space likely digital media representative of seroma and some postoperativeblood products [...] spine XR, 2-3 views (07/01/2024 7:53 AM LINER REROLL TENDER) Anatomical Region Laterality Modality Spine, T-spine, L-spine, Abdomen/Pelvis Digital Radiography 07/01/2024 7:53 AM LINER REROLL TENDER Impressions 07/01/2024 8:10 AM LINER REROLL TENDER IMPRESSION: Five lumbar segments. Postoperative changes of [...] change from 06/29/2024. Narrative 07/01/2024 8:10 AM LINER REROLL TENDER EXAM: XR LUMBAR SPINE 2/3 VIEWS LOCATION: [facility] DATE: 07/01/2024 INDICATION: Postop back pain. COMPARISON: 06/29/2024 plain film imaging. Procedure Note Jordan Calderón MD - 07/01/2024 EXAM: XR LUMBAR SPINE 2/3 VIEWS LOCATION: [facility] DATE: 07/01/2024 INDICATION: Postop back pain. COMPARISON: [...] Extra Red Top Tube (07/01/2024 5:59 AM LINER REROLL TENDER) [facility] Signature Hold Specimen [facility] 07/01/2024 7:17 AM LINER REROLL TENDER [facility] Blood BLOOD SPECIMEN / Unknown Venipuncture / Unknown 07/01/2024 5:59 AM LINER REROLL TENDER 07/01/2024 6:07 AM LINER REROLL TENDER Suraj Cantrell MD LAB - BLOOD ORDERABLES Final Result [facility] [address] Lab (1st floor, no room number) [place] [address], [facility] * Extra Blue Top Tube (07/01/2024 5:59 AM LINER REROLL TENDER) Hold Specimen [facility] 07/01/2024 7:17 AM LINER REROLL TENDER LABORATORY Blood BLOOD SPECIMEN / Unknown Venipuncture / Unknown 07/01/2024 5:59 AM LINER REROLL TENDER 07/01/2024 6:07 AM LINER REROLL TENDER us Suraj Cantrell MD LAB - BLOOD ORDERABLES Final Result [facility] [address] Lab (1st floor, no room number) [place] [id number] * (ABNORMAL) CBC with platelets and differential (07/01/2024 5:59 AM LINER REROLL TENDER) [facility] Signature WBC Count 8.7 4.0 - 11.0 10e3/uL 07/01/2024 6:14 AM LINER REROLL TENDER [facility] RBC Count 4.67 4.40 - 5.90 10e6/uL 07/01/2024 6:14 AM LINER REROLL TENDER [facility] Hemoglobin 14.6 13.3 - 17.7 g/dL 07/01/2024 6:14 AM LINER REROLL TENDER [facility] Hematocrit 42.6 40.0 - 53.0 % 07/01/2024 6:14 AM LINER REROLL TENDER [facility] MCV 91 78 - 100 fL 07/01/2024 6:14 AM LINER REROLL TENDER [facility] MCH 31.3 26.5 - 33.0 pg 07/01/2024 6:14 AM LINER REROLL TENDER [facility] MCHC 34.3 31.5 - 36.5 g/dL 07/01/2024 6:14 AM LINER REROLL TENDER [facility] RDW 13.4 10.0 - 15.0 % 07/01/2024 6:14 AM LINER REROLL TENDER [facility] Platelet Count 176 150 - 450 10e3/uL 07/01/2024 6:14 AM LINER REROLL TENDER [facility] % Neutrophils 64 % 07/01/2024 6:14 AM LINER REROLL TENDER [facility] % Lymphocytes 19 % 07/01/2024 6:14 AM LINER REROLL TENDER [facility] % Monocytes 17 % 07/01/2024 6:14 AM LINER REROLL TENDER [facility] % Eosinophils 0 % 07/01/2024 6:14 AM LINER REROLL TENDER [facility] % Basophils 0 % 07/01/2024 6:14 AM LINER REROLL TENDER [facility] % Immature Granulocytes 1 % 07/01/2024 6:14 AM LINER REROLL TENDER [facility] NRBCs per 100 WBC 0 <1 /100 025 6:14 AM LINER REROLL TENDER [facility] Absolute Neutrophils 5.5 1.6 - 8.3 10e3/uL 07/01/2024 6:14 AM LINER REROLL TENDER [facility] Absolute Lymphocytes 1.6 0.8 - 5.3 10e3/uL 07/01/2024 6:14 AM LINER REROLL TENDER [facility] Absolute Monocytes 1.4(H) 0.0 - 1.3 10e3/uL 07/01/2024 6:14 AM LINER REROLL TENDER [facility] Absolute Eosinophils 0.0 0.0 - 0.7 10e3/uL 07/01/2024 6:14 AM LINER REROLL TENDER [facility] Absolute Basophils 0.0 0.0 - 0.2 10e3/uL 07/01/2024 6:14 AM LINER REROLL TENDER [facility] Absolute Immature Granulocytes 0.0 <=0.4 10e3/uL 07/01/2024 6:14 AM LINER REROLL TENDER [facility] Absolute NRBCs 0.0 10e3/uL 07/01/2024 6:14 AM LINER REROLL TENDER [facility] Blood BLOOD SPECIMEN / Unknown Venipuncture / Unknown 07/01/2024 5:59 AM LINER REROLL TENDER 07/01/2024 6:05 AM LINER REROLL TENDER Ector Chambers MD LAB - BLOOD ORDER ÓSCAR Final Result [facility] [address] Lab (1st floor, no room number) [place] [phone] [place] [address] * Erythrocyte sedimentation rate auto (07/01/2024 5:59 AM LINER REROLL TENDER) Erythrocyte Sedimentation Rate 8 0 - 20 mm/hr 07/01/2024 6:31 AM LINER REROLL TENDER [facility] Blood BLOOD SPECIMEN / Unknown Venipuncture / Unknown 07/01/2024 5:59 AM LINER REROLL TENDER 07/01/2024 6:05 AM LINER REROLL TENDER Ector Chambers MD LAB - BLOOD ORDER ÓSCAR Final Result [facility] [address] Lab (1st floor, no room number) [place] [phone] [place] [address] * (ABNORMAL) CRP inflammation (07/01/2024 5:59 AM LINER REROLL TENDER) CRP Inflammation 68.02(H) <5.00 mg/L 07/01/2024 6:42 AM LINER REROLL TENDER [facility] Blood BLOOD SPECIMEN / Unknown Venipuncture / Unknown 07/01/2024 5:59 AM LINER REROLL TENDER 07/01/2024 6:07 AM LINER REROLL TENDER Ector Chambers MD LAB - BLOOD ORDER ÓSCAR Final Result [facility] [address] Lab (1st floor, no room number) [place] [address], [facility] * Basic metabolic panel (07/01/2024 5:59 AM LINER REROLL TENDER) [facility] Sodium 138 135 - 145 mmol/L 07/01/2024 6:42 AM [facility] Potassium 3.9 3.4 - 5.3 mmol/L 07/01/2024 6:42 AM [facility] Chloride 101 98 - 107 mmol/L 07/01/2024 6:42 AM [facility] Carbon Dioxide (CO2) 26 22 - 29 mmol/L 07/01/2024 6:42 AM [facility] Anion Gap 11 7 - 15 mmol/L 07/01/2024 6:42 AM [facility] Urea Nitrogen 22.3 8.0 - 23.0 mg/dL 07/01/2024 6:42 AM [facility] Creatinine 0.91 0.67 - 1.17 mg/dL 07/01/2024 6:42 AM [facility] GFR Estimate 90 >60 mL/min/1.7 3m2 07/01/2024 6:42 AM [facility] Comment:eGFR calculated usor g 2020 CKD-EPI equation. Calcium 8.8 8.8 - 10.4 mg/dL 07/01/2024 6:42 AM [facility] Glucose 99 70 - 99 mg/dL 07/01/2024 6:42 AM [facility] Blood BLOOD SPECIMEN / Unknown Venipuncture / Unknown 07/01/2024 5:59 AM LINER REROLL TENDER 07/01/2024 6:07 AM LINER REROLL TENDER Ector Chambers MD LAB - BLOOD ORDER ÓSCAR Final Result [facility] [address] Lab (1st floor, no room number) [place] [address], [facility] documented in this encounter Visit Diagnoses Diagnosis [...] after each dose. $Given 07/01/2024 10:30 AM LINER REROLL TENDER 5 mg gadobutrol (GADAVIST) injection 12 mL 12 mL, Intravenous, ONCE, On 07/01/24 at 1025, For 1 dose, Supplied by, and administered by MRI. $Given 07/01/2024 10:39 AM LINER REROLL TENDER 12 mLs HYDROmorphone (DILAUDID) injection 1 mg 1 mg, Intravenous, EVERY 30 MIN PRN, moderate pain, severe pain, Starting on 07/01/24 at 1235, For 3 doses, Notify the provider to assess for uncontrolled pain or analgesic side effects. Hold while on IV SENIOR FRONT END DEVELOPER or with regular IV opioid dosing. $Given 07/01/2024 3:31 PM LINER REROLL TENDER 1 mg $Given 07/01/2024 2:19 PM LINER REROLL TENDER 1 mg $Given 07/01/2024 12:57 PM LINER REROLL TENDER 1 mg HYDROmorphone (PF) (DILAUDID) injection 0.5 mg 0.5 mg, Intravenous, EVERY 30 MIN PRN, moderate pain, severe pain, Starting on 07/01/24 at 0638, For 3 doses, Notify the provider to assess for uncontrolled pain or analgesic side effects. Hold while on IV SENIOR FRONT END DEVELOPER or with regular IV opioid dosing. $Given 07/01/2024 9:56 AM LINER REROLL TENDER 0.5 mg $Given 07/01/2024 7:34 AM LINER REROLL TENDER 0.5 mg $Given 07/01/2024 6:41 AM LINER REROLL TENDER 0.5 mg HYDROmorphone (PF) (DILAUDID) injection 0.5 mg 0.5 mg, Intravenous, ONCE, On 07/01/24 at 1055, For 1 dose $Given 07/01/2024 10:56 AM LINER REROLL TENDER 0.5 mg HYDROmorphone (PF) (DILAUDID) injection 0.5 mg 0.5 mg, Intravenous, EVERY 1 HOUR PRN, shortness of breath, Starting on Tue07/01/24 at 1557, For 3 doses $Given 07/01/2024 5:42 PM LINER REROLL TENDER 0.5 mg $Given 07/01/2024 4:32 PM LINER REROLL TENDER 0.5 mg HYDROmorphone (PF) (DILAUDID) injection 0.5 mg 0.5 mg, Intravenous, ONCE, On Tue07/01/24 at 1805, For 1 dose, Notify the provider to assess for uncontrolled pain or analgesic side effects. Hold while on IV SENIOR FRONT END DEVELOPER or with regular IV opioid dosing. $Given 07/01/2024 6:07 PM LINER REROLL TENDER 0.5 mg ketamine (KETALAR) (HIGH CONC) inj 30 mg 30 mg, Intravenous, ONCE, On Tue07/01/24 at 1140, For 1 dose, Must dilute with NS or D5W prior to intravenous administration. Max dose for analgesia on general care nursing unit: 0.2 mg/kg or 20 mg, whichever is lower. $Given 07/01/2024 11:51 AM LINER REROLL TENDER 30 mg methocarbamol (ROBAXIN) tablet 500 mg 500 mg, Oral, ONCE, On Tue07/01/24 at 0800, For 1 dose $Given 07/01/2024 8:02 AM LINER REROLL TENDER 500 mg ondansetron (ZOFRAN) injection 4 mg 4 mg, Intravenous, EVERY 30 MIN PRN, nausea, vomiting, Administer over 2-5 Minutes, Starting on Tue07/01/24 at 0638, For 3 doses, May repeat in 30 minutes as needed, up to 3 doses. $Given 07/01/2024 6:41 AM LINER REROLL TENDER 4 mg documented in this encounter Active and Recently Administered Medications Times are shown in LINER REROLL TENDER. Scheduled Medication Order 06/29/2024 06/30/2024 07/01/2024 diazepam [...] MRI. 1039 ($Given - Provi lidia: ZI Seymoru) HYDROmorphone (PF) (DILAUDID) injection 0.5 mg (COMPLETED) 0.5 mg, Intravenous, ONCE, On 07/01/24 at 1055, For 1 dose 1056 ($Given - Provi lidia: Lisa Wagner RN) HYDROmorphone (PF) (DILAUDID) injection 0.5 mg (COMPLETED) 0.5 mg, Intravenous, ONCE, On 07/01/24 at 1805, For 1 dose, Notify the provider to assess for uncontrolled pain or analgesic side effects. Hold while on IV SENIOR FRONT END DEVELOPER or with regular IV opioid dosing. 1807 [...] analgesic side effects. Hold while on IV SENIOR FRONT END DEVELOPER or with regular IV opioid dosing. 1257 [...] analgesic side effects. Hold while on IV SENIOR FRONT END DEVELOPER or with regular IV opioid dosing. 0641 [...] documented as of this encounter Care Teams Cooler Deliverer Relationship Specialty Start Date End Date Cecil Mercado MD [facility] [id number] [place] [address] PCP - General Family Medicine 03/28/23 documented as of this encounter
[2024-07-26 03:25] LABS: Chloride* 105 mmol/L (96-114); Potassium* 4.3 mmol/L (3.6-5.1); Sodium* 140 mmol/L (135-149)
[2024-07-26 03:26] LABS: D Dimer Quantitative* 16.17 ug/ml (0.00-0.50)
--- NOTE | 2024-07-26 03:28 | CRLHL7_ITS ---
For Patients: As a result of the Century Cures Act, medical imaging exams and procedure reports are released immediately into your electronic medical record. You may view this report before your referring provider. If you have questions, please contact your health care provider. INDICATION: Clinical suspicion for pulmonary embolism, positive D-dimer. TECHNIQUE: CT chest PE was acquired with 95 cc Isovue 370 IV contrast. COMPARISON: None. FINDINGS: Heart and vasculature: Contrast opacification of the pulmonary arterial tree is adequate. Extensive bilateral pulmonary arterial filling defect starting in the right and left main pulmonary arteries and extending to the distal branches. Mildly enlarged main pulmonary artery measures up to 3.3 cm. RV:LV ratio is greater than 1. Ectatic ascending aorta measuring up to 4.5 cm. Coronary artery calcifications. Atherosclerotic calcifications of the aorta and branch vessels. Lungs and pleura: No suspicious nodules or infiltrates. Mild subsegmental atelectasis. No pleural effusions, pleural thickening, or pneumothorax. Lymph nodes/mediastinum: No mediastinal, hilar, or axillary adenopathy. Chest wall: No masses. Upper abdomen: No acute or significant findings. Splenic calcified granulomas. Renal cysts. Bones: Unremarkable for age. IMPRESSION: 1. Saddle pulmonary emboli extending to the distal branches. Multiple findings that could be suggestive of associated right heart strain. 2. Ectatic aorta measuring up to 4.5 cm. Findings communicated to MD Luis Daniel (ordering provider) by MD Donovan (radiology) at 0400 by phone. Please note that all CT scans at this facility use dose modulation, iterative reconstruction, and/or weight-based dosing when appropriate to reduce radiation dose to as low as reasonably achievable. Dictated by Sawyer Man MD @ 07/26/2024 4:10:14 AM (Electronically Signed)
[2024-07-26] MEDS: IPRAT-ALBUT 0.5-2.5 MG/3 ML NEB 1 NEB IH (03:30)
[2024-07-26 03:31] LABS: PCR FLU A Negative PCR FLU A (Negative); PCR FLU B Negative PCR FLU B (Negative); PCR RSV Negative PCR RSV (Negative); SARS PCR* Negative SARS-CoV-2 (Negative)
[2024-07-26 03:32] LABS: NT Pro B Type NatriureticPept* 714 pg/mL; Troponin I* 0.22 ng/mL (0.01-0.04)
--- NOTE | 2024-07-26 03:51 | ED.CHESTPAIN ---
HPI - Chest Pain General Date Seen: 07/26/24 Chief Complaint: Chest Pain Stated Complaint: shortness of breath, chest pain Time Seen by Provider: 07/26/24 02:55 Source: patient Mode of arrival: ambulatory Limitations: no limitations History of Present Illness HPI narrative: Patient is a 74-year-old male who comes in with cough and wheezing that have gotten worse over the past 1-2 days. He had L3-4 spinal fusion done about one month ago. He has been doing physical activity and was walking at the gym two days ago. He had some type of reaction to either Tylenol or gabapentin and developed hives. Those have resolved. No lip or tongue swelling. No ongoing rash or itching. Took some albuterol at home about 6 hours ago and that did help his breathing for short time. No documented fevers. Related Data Home Medications ?Medication ?Instructions ?Recorded ?Confirmed azelastine 137 mcg (0.1 %) nasal 137 mcg intranasal BID 12/17/22 12/20/22 spray evolocumab 140 mg/mL subcutaneous 140 mg subcut Q2W 12/17/22 07/26/24 pen injector fluticasone propionate 50 1 spray intranasal DAILY PRN 12/17/22 12/20/22 mcg/actuation nasal spray,suspension albuterol sulfate 90 mcg/actuation inhalation 07/26/24 aerosol inhaler gabapentin 300 mg capsule 300 mg PO 3XD 07/26/24 07/26/24 Allergies Allergy/AdvReac Type Severity Reaction Status Date / Time [id number] Reductase AdvReac myalgia Verified 12/20/22 07:25 Inhibitor Review of Systems Narrative Review of systems is outlined above otherwise noted to be negative. [facility] Medical History (Updated 07/26/24 @ 03:08 by Sawyer Cary MD) Mixed hyperlipidemia ?E78.2 - Mixed hyperlipidemia (ICD-10) Surgical History (Updated 07/26/24 @ 03:08 by Sawyer Cary MD) History of lumbar spinal fusion ?Z98.1 - Arthrodesis status (ICD-10) Social History (Updated 07/26/24 @ 03:09 by Sawyer Cary MD) Narrative: , nonsmoker, social ETOH Smoking Status: Never smoker Do you use any of these nicotine containing products: None How often do you have a drink containing alcohol: 2-4 times a month How many standard drinks containing alcohol do you have on a typical day: 1 or 2 AUDIT-C Alcohol total score: 2 Non-prescribed substance use: denies use Caffeine: No Exam Narrative Exam Narrative: Vitals noted. HEENT: Conjunctiva clear. Tympanic membranes are pearly white bilaterally. Posterior pharynx is clear without erythema or exudate. Neck is supple without adenopathy, thyromegaly, carotid bruit. Lungs: He has some expiratory wheezes. No localizing rales or rhonchi. Heart: Regular rate and rhythm without murmur. Abdomen: Soft and nontender. No guarding, rigidity, rebound. Bowel sounds are normal. No palpable masses. Extremities: No cyanosis or edema. Good distal pulses. Skin: No abnormalities noted of the exposed skin. Neurologic: Awake, alert, fully oriented. Neurologic exam is nonfocal. Const Vital Signs, click to edit/add: Vital Signs - 24 hr 07/26/24 02:38 07/26/24 02:47 07/26/24 02:49 Temperature 97.1 F L Pulse Rate 78 77 Pulse Rate [Pulse Oximeter] 77 Respiratory Rate 20 44 H 22 Blood Pressure 129/91 H Blood Pressure [Right Upper Arm] 147/97 H Pulse Oximetry 93 91 91 Oxygen Delivery Method Room Air 07/26/24 03:00 07/26/24 03:01 07/26/24 03:02 Temperature Pulse Rate 78 77 Pulse Rate [Pulse Oximeter] Respiratory Rate 17 28 H Blood Pressure 130/102 H Blood Pressure [Right Upper Arm] Pulse Oximetry 92 90 94 Oxygen Delivery Method 07/26/24 03:02 07/26/24 03:18 07/26/24 03:30 Temperature Pulse Rate 78 78 80 Pulse Rate [Pulse Oximeter] Respiratory Rate 18 25 H 19 Blood Pressure Blood Pressure [Right Upper Arm] Pulse Oximetry 92 94 89 Oxygen Delivery Method 07/26/24 03:31 07/26/24 03:51 07/26/24 04:00 Temperature Pulse Rate 83 80 76 Pulse Rate [Pulse Oximeter] Respiratory Rate 14 Blood Pressure 126/75 Blood Pressure [Right Upper Arm] Pulse Oximetry 89 91 88 Oxygen Delivery Method 07/26/24 04:15 07/26/24 04:30 07/26/24 04:32 Temperature Pulse Rate 78 78 76 Pulse Rate [Pulse Oximeter] Respiratory Rate 21 17 35 H Blood Pressure 111/85 Blood Pressure [Right Upper Arm] Pulse Oximetry 92 90 93 Oxygen Delivery Method Course Course ED Course: Patient seen and examined. A DuoNeb is ordered. Labs and chest x-ray are ordered triple swab is collected. Reevaluation(s) Reevaluation #1: Chest x-ray is unremarkable. CBC, BMP are normal. Pro BN AP is 714. Troponin 0.22. D-dimer is 16.17. Triple swab is negative. CT angiogram of the chest is ordered. Reevaluation #2: CT of the chest shows a saddle pulmonary embolism extending bilaterally. His clot burden is large. He has evidence of right heart strain. He is given heparin bolus. I spoke with Dr. Nuno and bandage wrapping machine operator at [facility] as well as Dr. Caceres in Interventional Radiology. They have recommended half dose tPA and transferred to [facility] for further evaluation. Reevaluation #3: His heparin is shut off prior to thrombolytics. Risks, benefits, side effects of thrombolytics were discussed with the patient and verbal consent is obtained. We do not have tPA at this facility so instead he was given TNKase, with 25 mg over 5 minutes. He tolerated this well. He is sent by ALS ambulance to [facility] in stable condition. Vital Signs Vital signs: Initial Vital Signs Temperature 97.1 F L 07/26/24 02:38 Temperature Source Temporal Artery Scan 07/26/24 02:38 Pulse Rate 77 07/26/24 02:38 Respiratory Rate 20 07/26/24 02:38 Blood Pressure 147/97 H 07/26/24 02:38 Blood Pressure Mean 113 H 07/26/24 02:38 Blood Pressure Position Supine 07/26/24 02:38 Pulse Oximetry 93 07/26/24 02:38 Oxygen Delivery Method Room Air 07/26/24 02:38 Vital Signs Temperature 97.1 F L 07/26/24 02:38 Pulse Rate 77 07/26/24 02:38 Respiratory Rate 20 07/26/24 02:38 Blood Pressure 147/97 H 07/26/24 02:38 Pulse Oximetry 93 07/26/24 02:38 Oxygen Delivery Method Room Air 07/26/24 02:38 Temperature 97.1 F L 07/26/24 02:38 Pulse Rate 76 07/26/24 04:32 Respiratory Rate 35 H 07/26/24 04:32 Blood Pressure 111/85 07/26/24 04:32 Pulse Oximetry 93 07/26/24 04:32 Oxygen Delivery Method Room Air 07/26/24 02:38 Medications Administered Medications: Generic Name Dose Route Start Last Admin Trade Name Freq PRN Reason Stop Dose Admin Heparin Sodium/Dextrose 25,000 unit in 500 mls @ 0 mls/hr 07/26/24 04:15 07/26/24 05:08 Heparin IV 0 unit/hr .Q0M HAROON 0 mls/hr Titration Protocol Per Protocol Tenecteplase 25 mg 07/26/24 05:09 07/26/24 05:10 Tenecteplase 5 Mg/Ml Inj IVP 07/26/24 05:10 25 mg ONCE ONE Administration Discontinued Medications Generic Name Dose Route Start Last Admin Trade Name Freq PRN Reason Stop Dose Admin Albuterol/Ipratropium 1 neb 07/26/24 03:06 07/26/24 03:30 Iprat-Albut 0.5-2.5 Mg/3 Ml Neb IH 07/26/24 03:07 1 neb ONCE ONE Administration Heparin Sodium (Porcine) 9,800 unit 07/26/24 04:01 07/26/24 04:10 Heparin 5,000 Unit/0.5 Ml Inj 80 unit/kg (9800 unit) 07/26/24 04:02 9,800 unit IVP Administration ONCE ONE MDM - Chest Pain Lab Data Labs: Lab Results 07/26/24 07/26/24 Range/Units 02:44 02:45 WBC 7.87 (4.50-11.00) K/uL RBC 5.34 (4.30-5.90) m/uL Hgb 16.5 (13.5-17.5) gm/dL Hct 49.3 (37.0-53.0) % MCV 92 (80-100) fL MCH 31 (26-34) pg MCHC 34 (32-36) gm/dL RDW Coeff of Pinky 13.2 (11.5-15.5) % Plt Count 230 (140-440) K/uL Neut % (Auto) 61.7 (42.0-72.0) % Lymph % (Auto) 21.7 (20-44) % Morris % (Auto) 11.7 H (0.0-11.0) % Eos % (Auto) 3.3 (0.0-7.0) % Baso % (Auto) 0.3 (0.0-3.0) % Neut # (Auto) 4.86 (1.7-7.0) K/uL Lymph # (Auto) 1.71 (0.90-2.90) K/uL Morris # (Auto) 0.90 (0.00-0.90) K/UL Eos # (Auto) 0.26 (0.00-0.50) K/uL Baso # (Auto) 0.02 (0.00-0.30) K/uL Abs Immat Gran (auto) 0.10 (0.00-0.30) K/uL Imm/Tot Granulo (auto) 1.3 % INR 0.96 (0.91-1.10) APTT 39 H (23-33) Seconds D-Dimer Quant (PE/DVT) 16.17 H (0.00-0.50) ug/ml Sodium 140 (135-149) mmol/L Potassium 4.3 (3.6-5.1) mmol/L Chloride 105 (96-114) mmol/L Carbon Dioxide 25 (20-32) mmol/L Anion Gap 10 (7-15) mEq/L BUN 22 (7-30) mg/dL Creatinine 0.9 (0.5-1.5) mg/dL Estimated Creat Clear 77.63 Estimated GFR 91 ml/min Glucose 115 (60-115) mg/dL Calcium 9.3 (8.4-10.6) mg/dL Troponin I 0.22 H* (0.01-0.04) ng/mL NT-Pro-B Natriuret Pep 714 pg/mL SARS-CoV-2 (PCR) Negative SARS-CoV-2 (Negative) Influenza Type A (PCR) Negative PCR FLU A (Negative) Influenza Type B (PCR) Negative PCR FLU B (Negative) RSV (PCR) Negative PCR RSV (Negative) POC Troponin I 0.14 H (0.01-0.04) ng/ml Discharge Plan Discharge Prescriptions: No Action azelastine 137 mcg (0.1 %) aerosol,spray 137 mcg intranasal BID Rx Instructions: administer into each nostril evolocumab 140 mg/mL pen injector 140 mg subcut Q2W fluticasone propionate 50 mcg/actuation spray,suspension 1 spray intranasal DAILY PRN Rx Instructions: administer into each nostril gabapentin 300 mg capsule 300 mg PO 3XD albuterol sulfate 90 mcg/actuation HFA aerosol inhaler inhalation Follow Up/Referrals: Cecil Mercado MD [Primary Care Provider] -
[2024-07-26] MEDS: HEPARIN 25,000 UNIT/500 ML BAG 30 UNIT IV (04:09)
[2024-07-26] MEDS: HEPARIN 5,000 UNIT/0.5 ML INJ 9800 UNIT IVP (04:10)
[2024-07-26 04:37] LABS: INR 0.96 (0.91-1.10); Partial Thromboplastin Time* 39 Seconds (23-33); Prothrombin Time 13.6 Seconds
[2024-07-26] MEDS: TENECTEPLASE 5 MG/ML inj 25 MG IVP (05:10)
[2024-07-26] MEDS: SODIUM CHLORIDE 0.9 % (FLUSH) 10 ML SYRINGE IVF (05:19)
== END 2024-07-26 05:31 | disposition short-term general hospital (02) ==
PROVIDERS: Emergency Provider Family Medicine; PCP Family Medicine
DX: I26.92 Saddle embolus of pulmonary artery without acute cor pulmonale (principal)
CPT/HCPCS: 36415; 71046; 71275; 80048; 83880; 84484; 85025; 85027; 85379; 85610; 85730; 87631; 93005; 94761; 96374; 99285; 99291; J1644; J3101; Q9967

== ENCOUNTER 2024-07-26 05:12 | Outpatient (CLI) | payer MEDICARE, SELFPAY | END 2024-07-26 05:13 | disposition home or self-care (01) | LOC: AMB 08-06 08:28 | PROVIDERS: PCP Family Medicine; Visit Provider Family Medicine | DX: I26.02 Saddle embolus of pulmonary artery with acute cor pulmonale (principal) | CPT/HCPCS: A0425; A0427 ==